=== PATIENT | female | born 1955 | race Caucasian/White ===

== ENCOUNTER 2018-10-07 07:17 | Observation (INO) ==
[2018-10-07] MEDS ORDERED: 0.9 % Sodium Chloride 1,000 ML IVC ONE (07:44)
[2018-10-07] MEDS ORDERED: Ipratropium/Albuterol Neb 3 ML IH ONE (07:44)
--- NOTE | 2018-10-07 07:47 | Emergency Department Note ---
Disposition Clinical Impression: Acute exacerbation of chronic obstructive airways disease Disposition: Admitted As Inpatient Condition: Fair Time of Disposition: 09:22 ([facility]) SOB HPI - General Chief Complaint: ED Shortness of Breath/Dyspnea Stated Complaint: med changes, increasing shortness of breath Time Seen by Provider: 10/07/18 07:37 Source: patient, EMS Mode of arrival: EMS Limitations: no limitations Nursing Notes Reviewed: Yes Vital Signs Reviewed: Yes - History of Present Illness Pt Subjective Complaint: shortness of breath Onset (ago): day(s) Severity: severe Consistency/Duration: constant Improves with: oxygen Worsens with: exertion Known history of: COPD Associated symptoms: Reports: fever, cough, wheezing Treatment prior to arrival: oxygen Cough present: Yes Cough Description: Moist Cough Frequency: Intermittent - Related Data Home Medications Medication Instructions Recorded Confirmed Albuterol Sulfate [Albuterol 2 puff IH BID 04/26/15 10/07/18 Inhaler] Calcium Carbonate/Vitamin D3 600 mg PO BID 04/26/15 10/07/18 [Calcium 600 + Vit D3 Tablet] Donepezil [Aricept] 5 mg PO DAILY 04/26/15 10/07/18 FLUoxetine HCl [PROzac] 60 mg PO DAILY 04/26/15 10/07/18 Folic Acid 800 mcg PO QDPC 04/26/15 10/07/18 Furosemide [Lasix] 40 mg PO DAILY 04/26/15 10/07/18 Lovastatin [Altoprev] 40 mg PO DAILY 04/26/15 10/07/18 Methotrexate [Otrexup] 5 mg PO QWEEK 04/26/15 10/07/18 ARIPiprazole [Abilify] 5 mg PO HS 07/12/16 10/07/18 Aspirin [Lo-Dose Aspirin EC] 81 mg PO DAILY 07/12/16 10/07/18 Amitriptyline [Elavil] 50 mg PO HS 09/24/18 10/07/18 Buprenorphine [Butrans] 1 each TD QWEEK 09/24/18 10/07/18 HYDROcodone/Acet 10/325 mg [[place] 1 tab PO QID 09/24/18 10/07/18 10-325 mg] Mometasone/Formoterol [Dulera 100 1 puff IH BID 09/24/18 10/07/18 Mcg/5 Mcg Inhaler] Oxygen 1 each .ROUTE HS 09/24/18 10/07/18 Allergies Allergy/AdvReac Type Severity Reaction Status Date / Time KHUSHI Inhibitors AdvReac Cough Verified 10/04/18 09:30 All systems ED: reviewed and negative except as stated. Constitutional: Reports: fever, chills ENT ED: Reports: congestion. Denies: ear pain, throat pain Cardiovascular: Denies: chest pain, palpitations Respiratory: Reports: cough, dyspnea, wheezes Gastrointestinal: Denies: abdominal pain, nausea, vomiting Musculoskeletal: Denies: back pain Integumentary: Denies: rash Neurological: Denies: headache Past Medical History - Past Medical History Attestation: Yes The following information was validated with the patient. 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 Absent: scleral icterus, conjunctival injection - ENT ENT exam: normal exam, normal oropharynx, mucous membranes moist, TM's normal bilaterally, normal external ear exam - Neck Neck exam: Present: normal inspection, full ROM - Chest Chest inspection: Present: normal inspection, symmetric chest wall rise. Absent: tenderness - Respiratory Respiratory exam: Present: wheezes (Faint and scattered bilaterally). Absent: respiratory distress, accessory muscle use - Cardiovascular Cardiovascular exam: Present: normal rhythm, tachycardia, normal heart sounds - Abdominal Exam Abdominal exam: Present: soft, Non-Tender, normal bowel sounds - Extremities Exam Extremities exam: Present: normal inspection. Absent: pedal edema - Neurological Exam Neurological exam: Present: alert, oriented X3 - Psychiatric Psychiatric exam: Present: normal affect, normal mood - Skin Skin exam: Present: warm, dry. Absent: rash Course Course Narrative: Patient presents with a moist cough, fevers and chills, shortness of breath. History of underlying COPD. She is febrile and tachycardic here. She was hypoxic on arrival. Oxygen saturation is in the mid 90s with oxygen supplementation. I suspect this is going to be pneumonia and ordered a septic workup and chest x-ray. Duonebs and fluids. At this point it is the end of my shift. I will be turning the case over to the oncoming physician to evaluate test results and reevaluate the patient and make appropriate disposition. - Reevaluation(s) Reevaluation #1: 63-year-old female turned over to my care at 0800 hrs. patient was evaluated patient's having marked dyspnea despite receiving aerosol treatments is having cough and congestion this is thought possibly to be related to medication change s and is evidence that she is having COPD changes though her chest x-ray does not show pneumonia there is still possibility of an underlying pneumonia she has cause little bit of strain on her heart because of the tachycardia there is no ST elevation consistent with an ischemic or injury type pattern this x-ray showed COPD changes but no infiltrate d-dimer is pending she is alert pleasant female in mild dyspnea even after aerosols skin is warm and dry pupils round nares are patent throat is soft supple trachea is midline chest still has diffuse interstitial wheezing noted throughout heart tachycardic regular abdomen soft positive bowel sounds extremities show no pitting edema mentation is clear intact will discuss with patient about being admitted to receive IV steroids and aerosols to see if we can open up and caused a decreased inflammatory response is currently the lung lora anticipated admission Reevaluation #2: PE study was done which is negative shows COPD changes patient transferred to [facility] Vital Signs Temperature 101.8 F H 10/07/18 07:19 Pulse Rate 130 10/07/18 07:19 Respiratory Rate 26 10/07/18 07:19 Blood Pressure 163/80 10/07/18 07:19 O2 Sat by Pulse Oximetry 96 10/07/18 07:19 Temperature 101.8 F H 10/07/18 07:19 Pulse Rate 106 10/07/18 10:02 Respiratory Rate 18 10/07/18 10:02 Blood Pressure 146/64 10/07/18 10:02 O2 Sat by Pulse Oximetry 93 10/07/18 10:02 Oxygen Delivery Oxygen Delivery Nasal Cannula Shortness of Breath/Dyspnea - Medical Records Medical records reviewed: Yes I reviewed the patient's medical records. - Lab Data Result diagrams: 10/07/18 07:59 10/07/18 07:59 Lab Results 10/07/18 10/07/18 10/07/18 Range/Units 07:59 07:59 07:59 WBC 9.1 (4.3-11.1) K/mcL RBC 4.23 (3.82-4.97) M/mcL Hgb 12.7 (11.5-15.4) g/dL Hct 40.2 (35.3-44.9) % MCV 95.0 (83.0-100.0) fL MCH 30.0 (28.0-33.3) pg MCHC 31.6 (31.6-35.5) g/dL RDW 13.1 (11.5-14.5) % Plt Count 205 (140-400) K/mcL MPV 9.5 (9.4-12.4) fL Immature Gran % 0.3 (0-4) % Seg Neutrophils % 87.8 % Lymphocytes % 4.1 % Monocytes % 7.3 % Eosinophils % 0.3 % Basophils % 0.2 % Neutrophils # 8.0 (1.6-8.9) K/mcL Lymphocytes # 0.4 L (0.6-4.6) K/mcL Monocytes # 0.7 (0.0-1.3) K/mcL Eosinophils # 0.0 (0.0-0.6) K/mcL Basophils # 0.0 (0.0-0.2) K/mcL PT (9.4-12.1) Seconds INR APTT (26.0-36.0) Seconds D-Dimer (0-500) ng/mLFEU Sodium 137 (136-145) mEq/L Potassium 4.1 (3.5-5.1) mEq/L Chloride 100 (98-107) mEq/L Carbon Dioxide 30 H (23-29) mEq/L BUN 22 (8-23) mg/dL Creatinine 0.86 (0.60-1.20) mg/dL Est GFR ( Amer) > 60 (> 60) Est GFR (Non-Af Amer) > 60 (> 60) BUN/Creatinine Ratio 26 (6-26) Glucose 93 (70-105) mg/dL Calculated Osmolality 287 (280-300) Lactic Acid 0.9 (0.5-2.2) mmol/L Calcium 9.6 (8.6-10.3) mg/dL Troponin I (< 0.04) ng/mL Urine Color (Yellow) Urine Clarity (Clear) Urine pH (5.0-8.0) pH Units Ur Specific [place] (1.010-1.025) Urine Protein (Neg-Trace) mg/dL Urine Glucose (UA) (Normal) mg/dL Urine Ketones (Negative) mg/dL Urine Blood (Negative) Urine Nitrite (Negative) Urine Bilirubin (Negative) Urine Urobilinogen (Normal) mg/dL Ur Leukocyte Esterase (Negative) Urine Microscopic WBC (0-3) per hpf Ur Squamous Epith Cells (None-Few) per lpf Urine Bacteria (None-Few) per hpf Ur Culture Indicated? (NO) 10/07/18 10/07/18 10/07/18 Range/Units 07:59 07:59 08:00 WBC (4.3-11.1) K/mcL RBC (3.82-4.97) M/mcL Hgb (11.5-15.4) g/dL Hct (35.3-44.9) % MCV (83.0-100.0) fL MCH (28.0-33.3) pg MCHC (31.6-35.5) g/dL RDW (11.5-14.5) % Plt Count (140-400) K/mcL MPV (9.4-12.4) fL Immature Gran % (0-4) % Seg Neutrophils % % Lymphocytes % % Monocytes % % Eosinophils % % Basophils % % Neutrophils # (1.6-8.9) K/mcL Lymphocytes # (0.6-4.6) K/mcL Monocytes # (0.0-1.3) K/mcL Eosinophils # (0.0-0.6) K/mcL Basophils # (0.0-0.2) K/mcL PT 11.2 (9.4-12.1) Seconds INR 1.0 APTT 31.8 (26.0-36.0) Seconds D-Dimer 2187 H (0-500) ng/mLFEU Sodium (136-145) mEq/L Potassium (3.5-5.1) mEq/L Chloride (98-107) mEq/L Carbon Dioxide (23-29) mEq/L BUN (8-23) mg/dL Creatinine (0.60-1.20) mg/dL Est GFR ( Amer) (> 60) Est GFR (Non-Af Amer) (> 60) BUN/Creatinine Ratio (6-26) Glucose (70-105) mg/dL Calculated Osmolality (280-300) Lactic Acid (0.5-2.2) mmol/L Calcium (8.6-10.3) mg/dL Troponin I 0.05 H* (< 0.04) ng/mL Urine Color Yellow (Yellow) Urine Clarity Clear (Clear) Urine pH 7.5 (5.0-8.0) pH Units Ur Specific [place] 1.020 (1.010-1.025) Urine Protein 100 H (Neg-Trace) mg/dL Urine Glucose (UA) Normal (Normal) mg/dL Urine Ketones Negative (Negative) mg/dL Urine Blood Negative (Negative) Urine Nitrite Negative (Negative) Urine Bilirubin Negative (Negative) Urine Urobilinogen Normal (Normal) mg/dL Ur Leukocyte Esterase Trace H (Negative) Urine Microscopic WBC 3-5 H (0-3) per hpf Ur Squamous Epith Cells Few (None-Few) per lpf Urine Bacteria Few (None-Few) per hpf Ur Culture Indicated? YES A (NO) - EKG Data EKG attestation: Yes I reviewed and interpreted this EKG. EKG results narrative: Twelve-lead EKG performed at 7:30 AM. Ordered, reviewed and interpreted by ED physician shows sinus tachycardia at a rate of 117. Normal axis. Good hour progression across precordium. Diffuse T-wave abnormalities that are nonspecific. Intervals within normal limits. Sepsis Event Note - Evaluation Sepsis Screen: Sepsis Risk Current Stage of Suspected Sepsis: ruled out Reason for ruling out sepsis: lactic normal and no endorogan changes and dyspnea caused factors to indicate Possible Source of Sepsis: pulmonary - Focused Exam Date of Encounter: 10/07/18 Time of Encounter: 09:06 Vital Signs: Vital Signs Temp Pulse Resp BP Pulse Ox 10/07/18 08:40 114 22 151/75 97 10/07/18 08:05 16 97 10/07/18 08:01 116 24 159/79 98 10/07/18 07:30 98 10/07/18 07:19 101.8 F H 130 26 163/80 96 Respiratory Exam: Present: wheezes, rhonchi, accessory muscle use Cardiovascular Exam: Present: tachycardia Capillary Refill: < 2 seconds Peripheral Pulse Strength: 3+ normal Peripheral Pulse Location: Radial Skin Exam: normal turgor - Bedside Monitoring Bedside Ultrasound Performed: No Passive Leg raise/fluid bolus: not performed
[2018-10-07 08:08] LABS: Basophils % 0.2 %; Eosinophils % 0.3 %; Hematocrit 40.2 % (35.3-44.9); Hemoglobin 12.7 g/dL (11.5-15.4); Immature Granulocytes % 0.3 % (0-4); Lymphocytes # 0.4 K/mcL (0.6-4.6); Lymphocytes % 4.1 %; Mean Corpuscular HGB Conc 31.6 g/dL (31.6-35.5); Mean Platelet Volume 9.5 fL (9.4-12.4); Monocytes # 0.7 K/mcL (0.0-1.3); Monocytes % 7.3 %; Platelet Count 205 K/mcL (140-400); Red Blood Count 4.23 M/mcL (3.82-4.97); Red Cell Distribution Width 13.1 % (11.5-14.5); Segmented Neutrophils % 87.8 %
[2018-10-07 08:10] LABS: Bilirubin,Urine Negative (Negative); Blood,Urine Negative (Negative); Clarity,Urine Clear (Clear); Color,Urine Yellow (Yellow); Glucose,Urine (UA) Normal (Normal); Ketones,Urine Negative (Negative); Leukocyte Esterase,Urine Trace (Negative); Nitrite,Urine Negative (Negative); PH,Urine 7.5 pH Units (5.0-8.0); Protein,Urine 100 mg/dL (Neg-Trace); Urobilinogen,Urine Normal (Normal)
[2018-10-07 08:30] LABS: Bacteria,Urine Few per hpf (None-Few); Squamous Epithelial Cell,Urine Few per lpf (None-Few)
[2018-10-07 08:36] LABS: BUN/Creatinine Ratio 26 (6-26); Blood Urea Nitrogen 22 mg/dL (8-23); Calcium 9.6 mg/dL (8.6-10.3); Carbon Dioxide 30 mEq/L (23-29); Chloride 100 mEq/L (98-107); Glucose 93 mg/dL (70-105); Osmolality,Calculated 287 (280-300); Potassium 4.1 mEq/L (3.5-5.1); Sodium 137 mEq/L (136-145); eGFR For Non-African Americans > 60 (> 60)
[2018-10-07 09:09] LABS: Prothrombin Time 11.2 Seconds (9.4-12.1)
[2018-10-07 09:12] LABS: Activated Partial Thrombo Time 31.8 Seconds (26.0-36.0)
[2018-10-07] MEDS ORDERED: Ondansetron 4 MG/2 ML VIAL IVP PRN (09:39)
[2018-10-07] MEDS ORDERED: Naloxone 0.4 MG/ML INJ IVP PRN (09:39)
[2018-10-07] MEDS ORDERED: Albuterol 2.5 MG/3 ML NEBULIZER IH PRN (09:39)
[2018-10-07] MEDS ORDERED: 0.9 % Sodium Chloride 1,000 ML IVC SCH (09:39)
[2018-10-07] MEDS ORDERED: Isovue-370 500 ML BOTTLE IVP ONE (10:02)
[2018-10-07] MEDS: Ipratropium/Albuterol Neb 3 ML IH SCH ×2 (11:38→17:25)
[2018-10-07] MEDS: *HR* HYDROcodone/Acet 10/325 mg TABLET PO SCH ×3 (14:35→21:03)
[2018-10-07] MEDS: MethylPREDNISolone 40 MG/ML VIAL IVP SCH ×2 (14:35→18:23)
--- NOTE | 2018-10-07 16:00 | Electrocardiograph Report ---
[address] [place], [place] [address] Test Date: 2018-10-07 Pat Name: Vicki Blanco Department: EDP-12 Room: [facility] Gender: F Nut Sorter: : 1955 Requested By: Margarito Emmanuel Order Number: [id number] Reading MD: Elvia Ayala Measurements Intervals [place] Rate: 117 P: 47 TN: 156 QRS: 49 QRSD: 107 T: 128 QT: 297 QTc: 415 Interpretive Statements Sinus tachycardia Probable left atrial enlargement Abnormal T, consider ischemia, diffuse leads Electronically Signed On 10-07-2018 15:59:30 EDT by Elvia Ayala
--- NOTE | 2018-10-07 17:16 | Internal Med History&Physical ---
Date of Encounter: 10/07/18 Time of Encounter: 16:30 Assessment and Plan (1) Acute exacerbation of chronic obstructive airways disease Current visit: Yes Status: Acute She was given Zithromax in emergency room. Rocephin and lactobacillus will be added. (2) Elevated troponin Current visit: Yes Status: Acute Likely due to demand ischemia. Metoprolol will be added to lower heart rat e/oxygen demand and blood pressure. (3) Depression Current visit: Yes Status: Chronic Continue Prozac, Abilify, and Elavil. Qualifiers: Depression Type: unspecified Qualified Code(s): F32.9 - Major depressive disorder, single episode, unspecified (4) Rheumatoid arthritis Current visit: Yes Status: Chronic Continue methotrexate, folic acid, and [place]. Qualifiers: Rheumatoid arthritis location: multiple sites Rheumatoid factor presence: unspecified presence Qualified Code(s): M06.9 - Rheumatoid arthritis, unspecified Internal Medicine - H&P: HPI Chief complaint: Cough and dyspnea Admitted From: Emergency Dept Plans for Post Hospital Care: Home History of present illness: Ms. Blanco is a 63 year old female who came to emergency room stating she had two-week history of cough and dyspnea. She was given Dulera by her laborer general at time of onset. Despite proper technique including mouth w ashing after use she reports she developed thrush and discontinued use approximately 5 days ago. She reports the cough has been essentially nonproductive. She came to emergency room and was found to have fever 101.8 F. Chest CTA showed no obvious infiltrate or other worrisome pathology. She was admitted to [facility] floor for ongoing care needs. Respiratory history is significant for having smoked from age [age] up to one pack per day. She has a diagnosis COPD and uses oxygen at home as needed. She has history of YANETH and has used CPAP in the past but not recently. Past Med Surg Social Fam HX - Past Medical History Medical history: arthritis, CHF, COPD, hyperlipidemia, osteoporosis Additional medical history: cervical cancer, one kidney, sleep apnea, emphysema Psychiatric history: depression - Past Surgical History Surgical History: appendectomy, hip replacement, hysterectomy Additional surgical history: heart cath, knuckle implants, right femur fracture repair - Social History Smoking Status: Former smoker Smokeless Tobacco Status: No Alcohol use: none Drug use: none Internal Medicine - H&P: Meds Albuterol Sulfate [Albuterol Inhaler] 2 puff IH BID 04/26/15 [History] Calcium Carbonate/Vitamin D3 [Calcium 600 + Vit D3 Tablet] 600 mg PO BID 04/26/15 [History] Donepezil [Aricept] 5 mg PO DAILY 04/26/15 [History] FLUoxetine HCl [PROzac] 60 mg PO DAILY 04/26/15 [History] Folic Acid 800 mcg PO QDPC 04/26/15 [History] Furosemide [Lasix] 40 mg PO DAILY 04/26/15 [History] Lovastatin [Altoprev] 40 mg PO DAILY 04/26/15 [History] Methotrexate [Otrexup] 5 mg PO QWEEK 04/26/15 [History] ARIPiprazole [Abilify] 5 mg PO HS 07/12/16 [History] Aspirin [Lo-Dose Aspirin EC] 81 mg PO DAILY 07/12/16 [History] Amitriptyline [Elavil] 50 mg PO HS 09/24/18 [History] Buprenorphine [Butrans] 1 each TD QWEEK 09/24/18 [History] HYDROcodone/Acet 10/325 mg [[place] 10-325 mg] 1 tab PO QID 09/24/18 [History] Mometasone/Formoterol [Dulera 100 Mcg/5 Mcg Inhaler] 1 puff IH BID 09/24/18 [History] Oxygen 1 each .ROUTE HS 09/24/18 [History] Allergy/AdvReac Type Severity Reaction Status Date / Time KHUSHI Inhibitors AdvReac Cough Verified 10/04/18 09:30 All Systems PM: A 10-system review of systems was performed and is negative for pertinent findings except as documented above in the HPI. Review of systems: Gen.: She states her weight has increased approximately 30 pounds in the past year. She attributes this to the of her last year resulting in unhealthy eating habits. Cardiovascular: She denies hypertension but claims a diagnosis of heart failure. Echocardiogram 02/08/2016 showed LVEF of 55%. There was mild diastolic dysfunction with E/A ratio 0.6. Interventricular septum and posterior wall thickness measurements were 0.90 and 1.04 cm respectively. No significant valvular abnormalities were seen. She reports heart catheter 2000 showed a sing le stenosis but she was told her coronary arteries were too small to be stented. She has not had repeat heart catheter or an EST since then. She does not get angina or anginal equivalents on exertion. She denies DVT or pulmonary embolus. Respiratory: As per history of present illness GI: She denies disorders of her liver gallbladder or exocrine pancreas : She reports kidney stones approximately age 14 without recurrence. She denies other kidney or bladder disorders. Neurologic: She denies large distribution strokes or seizures. She states she has been diagnosed with possible early dementia and was placed on Aricept. Endocrine: She denies diabetes or thyroid disease but has hyperlipidemia Hematology/oncology: She reports she had cervical cancer in situ age 16 and had curative hysterectomy at age 18. She denies other internal malignancies, blood disorders, or anemia Psychiatric: She has depression but denies anxiety other mental health issues [place] skeletal: She has DJD. She has had right MCP joint replacements on her second third fingers twice and bilateral total hip replacements. She has rheumatoid arthritis. She denies gout. - Constitutional Vitals: Temp Pulse Resp BP Pulse Ox 98.8 F 120 16 162/79 96 10/07/18 16:23 10/07/18 16:23 10/07/18 16:23 10/07/18 16:23 10/07/18 16:23 Exam: Gen.: She is a well-developed well-nourished female lying in bed who appears dyspneic at rest HEENT: Head is atraumatic and normocephalic. Eyes: EOMI. There is no scleral icterus. Mouth: Mucosa is moist. Neck: Supple and nontender. There is no thyromegaly or adenopathy noted. Heart: Regular with rate approximately 130/m. No murmurs or gallops are heard. Lungs: No wheezes or crackles are heard. Abdomen: Soft and nontender. No masses or guarding are noted. Extremities: There is no cyanosis edema or clubbing noted. Dorsalis pedis and posterior tibial pulses are trace palpable bilaterally. She has significant rheumatoid arthritis changes of her hands with MCP joint enlargement. She has bony disfigurement of her fingers. Neurologic: Mental status: She is talkative and a good historian. Cranial nerves: Smile is symmetric. Forehead wrinkles bilaterally. Tongue protrudes midline. EOMI. Motor: There is no pronator drift. Cerebellar: Finger to nose is intact bilaterally. Skin: Warm and dry Internal Med - H&P Results - Labs CBC & Chem 7: 10/07/18 07:59 10/07/18 07:59 Labs: Short CBC 10/07/18 Range/Units 07:59 WBC 9.1 (4.3-11.1) K/mcL Hgb 12.7 (11.5-15.4) g/dL Hct 40.2 (35.3-44.9) % Plt Count 205 (140-400) K/mcL Neutrophils # 8.0 (1.6-8.9) K/mcL BMP 10/07/18 07:59 Sodium 137 Potassium 4.1 Chloride 100 Carbon Dioxide 30 H BUN 22 Creatinine 0.86 Glucose 93 Calcium 9.6 Cardiac Enzymes 10/07/18 10/07/18 Range/Units 07:59 12:16 Troponin I 0.05 H* 0.15 H* (< 0.04) ng/mL Urine 10/07/18 Range/Units 08:00 Urine Color Yellow (Yellow) Urine Clarity Clear (Clear) Urine pH 7.5 (5.0-8.0) pH Units Ur Specific [place] 1.020 (1.010-1.025) Urine Protein 100 H (Neg-Trace) mg/dL Urine Glucose (UA) Normal (Normal) mg/dL - Impressions ITS Impressions Chest X-Ray 10/07/18 07:42 IMPRESSION: No acute cardiopulmonary disease is identified. D/ / Baljeet Conde MD / Baljeet Conde MD Interpreting Provider: Baljeet Conde MD Chest CTA 10/07/18 10:02 IMPRESSION: Negative CTA for pulmonary embolus. Mild emphysematous changes with a stable benign 7 mm noncalcified nodule superior segment left lower lobe. This is unchanged x5 years. Left basilar atelectasis with chronic elevation left hemidiaphragm. D/ / 10/07/2018 10:50:48 Ace Maria MD / [facility] Inter[facility] Provider: Ace Maria MD
[2018-10-07] MEDS ORDERED: cefTRIAXone 1,000 MG in Water for inj. (sterile) 20 ML 10 ML IVP SCH (18:00)
[2018-10-07] MEDS: Nystatin SUSP 5 ML UD.LIQ PO SCH ×2 (18:23→21:05)
[2018-10-07] MEDS ORDERED: ARIPiprazole 5 MG TABLET PO SCH (21:00)
[2018-10-07] MEDS: Lactobacillus 1 EACH CAP.SPRINK PO SCH (21:03)
[2018-10-08] MEDS: MethylPREDNISolone 40 MG/ML VIAL IVP SCH ×2 (00:04→06:11)
[2018-10-08 06:45] LABS: Basophils % 0.1 %; Hematocrit 42.2 % (35.3-44.9); Hemoglobin 13.2 g/dL (11.5-15.4); Immature Granulocytes % 0.9 % (0-4); Lymphocytes # 0.5 K/mcL (0.6-4.6); Lymphocytes % 3.6 %; Mean Corpuscular HGB Conc 31.3 g/dL (31.6-35.5); Mean Corpuscular Hemoglobin 29.9 pg (28.0-33.3); Mean Corpuscular Volume 95.5 fL (83.0-100.0); Mean Platelet Volume 10.1 fL (9.4-12.4); Monocytes # 0.2 K/mcL (0.0-1.3); Monocytes % 1.4 %; Neutrophils # 13.4 K/mcL (1.6-8.9); Platelet Count 210 K/mcL (140-400); Red Blood Count 4.42 M/mcL (3.82-4.97); Red Cell Distribution Width 13.3 % (11.5-14.5)
[2018-10-08 07:03] VITALS: BP 131/67
[2018-10-08 07:05] LABS: BUN/Creatinine Ratio 16 (6-26); Blood Urea Nitrogen 14 mg/dL (8-23); Calcium 9.6 mg/dL (8.6-10.3); Carbon Dioxide 31 mEq/L (23-29); Chloride 97 mEq/L (98-107); Glucose 152 mg/dL (70-105); Osmolality,Calculated 279 (280-300); Potassium 4.5 mEq/L (3.5-5.1); Sodium 133 mEq/L (136-145); eGFR For Non-African Americans > 60 (> 60)
[2018-10-08] MEDS: Lactobacillus 1 EACH CAP.SPRINK PO SCH (08:19)
[2018-10-08] MEDS: Nystatin SUSP 5 ML UD.LIQ PO SCH (08:20)
[2018-10-08] MEDS: *HR* HYDROcodone/Acet 10/325 mg TABLET PO SCH (08:20)
[2018-10-08] MEDS ORDERED: FLUoxetine 20 MG CAPSULE PO SCH (09:00)
[2018-10-08] MEDS ORDERED: Azithromycin 250 MG TABLET PO SCH (09:00)
[2018-10-08] MEDS ORDERED: Folic Acid 1 MG TABLET PO SCH (09:00)
[2018-10-08] MEDS ORDERED: Cholecalciferol (D-3) 1,000 UNIT TABLET PO SCH (09:00)
[2018-10-08] MEDS ORDERED: Aspirin Enteric Coated 81 MG Tablet PO SCH (09:00)
[2018-10-08] MEDS ORDERED: Furosemide 40 MG TABLET PO SCH (09:00)
--- NOTE | 2018-10-08 10:07 | Discharge Summary ---
Orders not resulted at time of discharge: Pending orders 10/07/18 07:59 Culture,Blood [BC] Stat 10/07/18 08:00 Culture,Urine [RM] Stat Date of Encounter: 10/08/18 Time of Encounter: 09:50 - Discharge Diagnosis (1) Acute exacerbation of chronic obstructive airways disease Priority: Primary Status: Acute (2) Elevated troponin Priority: Secondary Status: Acute (3) Depression Priority: Secondary Status: Chronic Qualifiers: Depression Type: unspecified Qualified Code(s): F32.9 - Major depressive disorder, single episode, unspecified (4) Rheumatoid arthritis Priority: Secondary Status: Chronic Qualifiers: Rheumatoid arthritis location: multiple sites Rheumatoid factor presence: unspecified presence Qualified Code(s): M06.9 - Rheumatoid arthritis, unspecified Hospital course: Ms. Blanco is a 63 year old female who came to emergency room stating she had two-week history of cough and dyspnea. 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 Despite proper technique including mouth washing after use she reports she developed thrush and discontinued use approximately 5 days ago. She reports the cough has been essentially nonproductive. She came to emergency room and was found to have fever 101.8 F. Chest CTA showed no obvious infiltrate or other worrisome pathology. She was admitted to [facility] floor for ongoing care needs. Initial orders were written by the emergency room physician. I saw her on October 07 and performed a history and physical. She was given IV Zithromax in emergency room. IV steroids were also ordered. I started Rocephin and lactobacillus. When I saw her on October 08 she stated she felt significantly improved and back to her baseline and wished to be discharged home. I offered her staying another day in the hospital but she felt she was stable for discharge. She will continue with antibiotic and probiotic with prednisone for 3 additional days at discharge. Final report on blood cultures and urine culture is pending at time of discharge. Troponin moises to 0.18 on serial testing. I felt this was likely due to demand ischemia. TSH on returned low at 0.161. Her PCP can do further workup. She will follow with her PCP Kenna Mendez CNP within 1 week. - Time Spent with Patient Total time spent providing and/or coordinating discharge services: - Discharge Medications Prescriptions: New Cefuroxime PO [Ceftin] 500 mg PO Q12HR #6 tablet Azithromycin [Zithromax] 250 mg PO DAILY #3 tablet Lactobacillus [Culturelle] 1 each PO BID #6 cap.sprink predniSONE [PredniSONE] 10 mg PO BIDWM #6 tablet Continue Amitriptyline [Elavil] 50 mg PO HS Oxygen 1 each .ROUTE HS Mometasone/Formoterol [Dulera 100 Mcg/5 Mcg Inhaler] 1 puff IH BID HYDROcodone/Acet 10/325 mg [Warriormine 10-325 mg] 1 tab PO QID Buprenorphine [Butrans] 1 each TD QWEEK Albuterol Sulfate [Albuterol Inhaler] 2 puff IH BID Furosemide [Lasix] 40 mg PO DAILY Methotrexate [Otrexup] 5 mg PO QWEEK Lovastatin [Altoprev] 40 mg PO DAILY FLUoxetine HCl [Prozac] 60 mg PO DAILY Folic Acid 800 mcg PO QDPC Donepezil [Aricept] 5 mg PO DAILY Calcium Carbonate/Vitamin D3 [Calcium 600-Vit D3 800 Tablet] 600 mg PO BID ARIPiprazole [Abilify] 5 mg PO HS Aspirin [Lo-Dose Aspirin EC] 81 mg PO DAILY Home Medications: Albuterol Sulfate [Albuterol Inhaler] 2 puff IH BID 04/26/15 [History] Calcium Carbonate/Vitamin D3 [Calcium 600-Vit D3 800 Tablet] 600 mg PO BID 04/26/15 [History] Donepezil [Aricept] 5 mg PO DAILY 04/26/15 [History] FLUoxetine HCl [Prozac] 60 mg PO DAILY 04/26/15 [History] Folic Acid 800 mcg PO QDPC 04/26/15 [History] Furosemide [Lasix] 40 mg PO DAILY 04/26/15 [History] Lovastatin [Altoprev] 40 mg PO DAILY 04/26/15 [History] Methotrexate [Otrexup] 5 mg PO QWEEK 04/26/15 [History] ARIPiprazole [Abilify] 5 mg PO HS 07/12/16 [History] Aspirin [Lo-Dose Aspirin EC] 81 mg PO DAILY 07/12/16 [History] Amitriptyline [Elavil] 50 mg PO HS 09/24/18 [History] Buprenorphine [Butrans] 1 each TD QWEEK 09/24/18 [History] HYDROcodone/Acet 10/325 mg [Warriormine 10-325 mg] 1 tab PO QID 09/24/18 [History] Mometasone/Formoterol [Dulera 100 Mcg/5 Mcg Inhaler] 1 puff IH BID 09/24/18 [History] Oxygen 1 each .ROUTE HS 09/24/18 [History] Azithromycin [Zithromax] 250 mg PO DAILY #3 tablet 10/08/18 [Rx] Cefuroxime PO [Ceftin] 500 mg PO Q12HR #6 tablet 10/08/18 [Rx] Lactobacillus [Culturelle] 1 each PO BID #6 cap.sprink 10/08/18 [Rx] predniSONE [PredniSONE] 10 mg PO BIDWM #6 tablet 10/08/18 [Rx] Allergies/Adverse Reactions: Allergy/AdvReac Type Severity Reaction Status Date / Time KHUSHI Inhibitors AdvReac Cough Verified 10/04/18 09:30 Date of admission: 10/07/18 09:25 Primary care physician: Kenna Mendez Consults: 10/07/18 09:39 Consult to Nurse Navigator [CONS] Routine Comment: - Constitutional Vitals: Temp Pulse Resp BP Pulse Ox 97.7 F 95 16 131/67 97 10/08/18 07:00 10/08/18 07:00 10/08/18 07:00 10/08/18 07:00 10/08/18 07:00 - Patient Status Disposition: Home, Self-Care Condition: Fair - Discharge Instructions Follow Up With: Kenna Mendez [Primary Care Provider] - 1 week - Diet and Activity Activity: resume usual activities as tolerated Diet: advance to your usual diet
[2018-10-09] MEDS ORDERED: *HR* Methotrexate 2.5 MG TABLET PO SCH (09:00)
--- NOTE | 2018-10-10 22:32 | Electrocardiograph Report ---
[place] [id number] Test Date: 2018-10-07 Pat Name: Vicki Blanco Department: EDP-12 Room: [facility] Gender: F Clip [employer] Wrapper: : 1955 Requested By: Jeferson Yadav Order Number: [id number] Reading MD: Joselito Christian Measurements Intervals Advance Rate: 116 P: 33 MS: 148 QRS: 45 QRSD: 108 T: 99 QT: 309 QTc: 430 Interpretive Statements Sinus tachycardia Electronically Signed On 10-10-2018 22:30:58 EDT by Joselito Christian
[2018-10-11] MEDS ORDERED: BUPRENORPHINE TP SCH (09:00)
== END 2018-10-08 11:55 | disposition home or self-care (01) ==
LOC: INPPIK 07:17 → EMEROOPIK 07:17 → INPPIK 11:47
PROVIDERS: ADMIT Internal Medicine; ATTEND Internal Medicine

== ENCOUNTER 2018-10-12 05:22 | Observation (INO) ==
[2018-10-12] MEDS ORDERED: Ipratropium/Albuterol Neb 3 ML ONE (05:38)
--- NOTE | 2018-10-12 07:33 | Emergency Department Note ---
Disposition Clinical Impression: Acute exacerbation of chronic obstructive airways disease Disposition: Admitted As Inpatient Condition: Fair Referrals: Kenna Mendez [Primary Care Provider] - Forms: ED Satisfaction Letter Time of Disposition: 07:39 SOB HPI - General Chief Complaint: ED Shortness of Breath/Dyspnea Stated Complaint: shortness of breath Time Seen by Provider: 10/12/18 05:30 Source: patient, EMS Mode of arrival: EMS Limitations: no limitations Nursing Notes Reviewed: Yes Vital Signs Reviewed: Yes - History of Present Illness Pt Subjective Complaint: shortness of breath Onset (ago): Just 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 Released a few days ago. He did have progressive worsening shortness of breath since leaving the hospital and then this morning she woke up very short of breath. She tried a breathing treatment did not seem to help. She checked her oxygen saturation at home and it was 84%. She does have home oxygen but only uses it as needed.) Severity: severe Consistency/Duration: constant Worsens with: exertion Associated symptoms: Reports: cough, wheezing. Denies: fever Treatment prior to arrival: bronchodilator Cough present: Yes Sputum production: No - Related Data Home Medications Medication Instructions Recorded Confirmed Albuterol Sulfate [Albuterol 2 puff IH BID 04/26/15 10/12/18 Inhaler] Calcium Carbonate/Vitamin D3 600 mg PO BID 04/26/15 10/12/18 [Calcium 600-Vit D3 800 Tablet] Donepezil [Aricept] 5 mg PO DAILY 04/26/15 10/12/18 FLUoxetine HCl [Prozac] 60 mg PO DAILY 04/26/15 10/12/18 Folic Acid 800 mcg PO QDPC 04/26/15 10/12/18 Furosemide [Lasix] 40 mg PO DAILY 04/26/15 10/12/18 Lovastatin [Altoprev] 40 mg PO DAILY 04/26/15 10/12/18 Methotrexate [Otrexup] 5 mg PO QWEEK 04/26/15 10/12/18 ARIPiprazole [Abilify] 5 mg PO HS 07/12/16 10/12/18 Aspirin [Lo-Dose Aspirin EC] 81 mg PO DAILY 07/12/16 10/12/18 Amitriptyline [Elavil] 50 mg PO HS 09/24/18 10/12/18 Buprenorphine [Butrans] 1 each TD QWEEK 09/24/18 10/12/18 HYDROcodone/Acet 10/325 mg [Ramsey 1 tab PO QID 09/24/18 10/12/18 10-325 mg] Mometasone/Formoterol [Dulera 100 1 puff IH BID 09/24/18 10/12/18 Mcg/5 Mcg Inhaler] Oxygen 1 each .ROUTE HS 09/24/18 10/12/18 Previous Rx's Medication Instructions Recorded Azithromycin [Zithromax] 250 mg PO DAILY #3 tablet 10/08/18 Cefuroxime PO [Ceftin] 500 mg PO Q12HR #6 tablet 10/08/18 Lactobacillus [Culturelle] 1 each PO BID #6 cap.sprink 10/08/18 predniSONE [PredniSONE] 10 mg PO BIDWM #6 tablet 10/08/18 Allergies Allergy/AdvReac Type Severity Reaction Status Date / Time KHUSHI Inhibitors AdvReac Cough Verified 10/04/18 09:30 All systems ED: reviewed and negative except as stated. Constitutional: Denies: fever, chills ENT ED: Denies: ear pain, throat pain, congestion Cardiovascular: Denies: chest pain, palpitations Respiratory: Reports: cough, dyspnea, wheezes Gastrointestinal: Denies: abdominal pain, nausea, vomiting Musculoskeletal: Reports: back pain Integumentary: Denies: rash Past Medical History - Past Medical History Attestation: Yes The following information was validated with the patient. 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 Absent: scleral icterus, conjunctival injection - ENT ENT exam: normal exam, normal oropharynx, mucous membranes moist, normal external ear exam - Neck Neck exam: Present: normal inspection, full ROM - Chest Chest inspection: Present: normal inspection, symmetric chest wall rise. Absent: tenderness - Respiratory Respiratory exam: Present: wheezes (Diffuse wheezes throughout). Absent: accessory muscle use - Cardiovascular Cardiovascular exam: Present: normal rhythm, tachycardia, normal heart sounds - Abdominal Exam Abdominal exam: Present: soft, Non-Tender, normal bowel sounds - Extremities Exam Extremities exam: Present: normal inspection. Absent: pedal edema - Neurological Exam Neurological exam: Present: alert, oriented X3 - Psychiatric Psychiatric exam: Present: normal affect, normal mood - Skin Skin exam: Present: warm, dry. Absent: rash Course Course Narrative: I saw the patient immediately on arrival. She went to shortness of breath it actually been worsening since leaving the hospital but was most significant this morning. She is tachypneic and coughing and wheezing. However triple DuoNeb on her and Solu-Medrol. Repeat the chest x-ray. Disposition will be based on diagnostic results and reevaluation. - Reevaluation(s) Reevaluation #1: Patient is better at rest after treatment. However we got her up and walked her and after a short time she got more short of breath and wheezy and her O2 sat dropped to 82%. She is in need to be admitted to the hospital again until better stabilize. I will talk to the hospitalist to arrange admission. Labs look fine. Chest x-ray looks okay. Time: 07:36 - Consultations Consultation #1: Dr. Yadav, hospitalist - I discussed the case with the hospitalist. He accepted the patient for admission. Time: 08:01 Vital Signs Temperature 98.9 F 10/12/18 05:25 Pulse Rate 111 10/12/18 05:25 Respiratory Rate 16 10/12/18 05:25 Blood Pressure 150/82 10/12/18 05:25 O2 Sat by Pulse Oximetry 92 10/12/18 05:25 Temperature 98.9 F 10/12/18 05:25 Pulse Rate 111 10/12/18 05:25 Respiratory Rate 18 10/12/18 05:45 Blood Pressure 150/82 10/12/18 05:25 O2 Sat by Pulse Oximetry 96 10/12/18 05:45 Oxygen Delivery Oxygen Delivery Room Air Shortness of Breath/Dyspnea - Medical Records Medical records reviewed: Yes I reviewed the patient's medical records. - Lab Data Lab results reviewed: Yes I reviewed the patient's lab results. Result diagrams: 10/12/18 05:55 10/12/18 05:55 Lab Results 10/12/18 10/12/18 10/12/18 Range/Units 05:55 05:55 05:55 WBC 4.3 D (4.3-11.1) K/mcL RBC 4.37 (3.82-4.97) M/mcL Hgb 13.0 (11.5-15.4) g/dL Hct 42.3 (35.3-44.9) % MCV 96.8 (83.0-100.0) fL MCH 29.7 (28.0-33.3) pg MCHC 30.7 L (31.6-35.5) g/dL RDW 13.2 (11.5-14.5) % Plt Count 179 (140-400) K/mcL MPV 9.5 (9.4-12.4) fL Immature Gran % 0.5 (0-4) % Seg Neutrophils % 66.8 % Lymphocytes % 22.7 % Monocytes % 9.8 % Eosinophils % 0.0 % Basophils % 0.2 % Neutrophils # 2.9 (1.6-8.9) K/mcL Lymphocytes # 1.0 (0.6-4.6) K/mcL Monocytes # 0.4 (0.0-1.3) K/mcL Eosinophils # 0.0 (0.0-0.6) K/mcL Basophils # 0.0 (0.0-0.2) K/mcL Sodium 135 L (136-145) mEq/L Potassium 3.6 (3.5-5.1) mEq/L Chloride 96 L (98-107) mEq/L Carbon Dioxide 35 H (23-29) mEq/L BUN 13 (8-23) mg/dL Creatinine 0.78 (0.60-1.20) mg/dL Est GFR ( Amer) > 60 (> 60) Est GFR (Non-Af Amer) > 60 (> 60) BUN/Creatinine Ratio 17 (6-26) Glucose 90 (70-105) mg/dL Calculated Osmolality 280 (280-300) Troponin I 0.04 H* (< 0.04) ng/mL B-Natriuretic Peptide 53 (Less than 100) pg/mL - Radiology Data Radiology results reviewed: Yes I reviewed the patient's radiology results.
[2018-10-12 07:40] LABS: Basophils % 0.2 %; Hematocrit 42.3 % (35.3-44.9); Immature Granulocytes % 0.5 % (0-4); Lymphocytes % 22.7 %; Mean Corpuscular HGB Conc 30.7 g/dL (31.6-35.5); Mean Corpuscular Hemoglobin 29.7 pg (28.0-33.3); Mean Corpuscular Volume 96.8 fL (83.0-100.0); Mean Platelet Volume 9.5 fL (9.4-12.4); Monocytes # 0.4 K/mcL (0.0-1.3); Monocytes % 9.8 %; Neutrophils # 2.9 K/mcL (1.6-8.9); Platelet Count 179 K/mcL (140-400); Red Blood Count 4.37 M/mcL (3.82-4.97); Red Cell Distribution Width 13.2 % (11.5-14.5); Segmented Neutrophils % 66.8 %
[2018-10-12 07:41] LABS: Carbon Dioxide 35 mEq/L (23-29); Chloride 96 mEq/L (98-107); Potassium 3.6 mEq/L (3.5-5.1); Sodium 135 mEq/L (136-145)
[2018-10-12 07:42] LABS: BUN/Creatinine Ratio 17 (6-26); Blood Urea Nitrogen 13 mg/dL (8-23); Glucose 90 mg/dL (70-105); Osmolality,Calculated 280 (280-300); eGFR For Non-African Americans > 60 (> 60)
[2018-10-12 07:44] LABS: Troponin I 0.04 ng/mL (< 0.04)
[2018-10-12] MEDS ORDERED: MethylPREDNISolone 40 MG/ML VIAL IVP ONE (10:51)
[2018-10-12] MEDS ORDERED: BUPRENORPHINE 10 MCG/HR TP SCH ×2 (10:51→19:00)
[2018-10-12] MEDS ORDERED: Naloxone 0.4 MG/ML INJ IVP PRN (10:51)
[2018-10-12] MEDS: Ipratropium/Albuterol Neb 3 ML IH SCH ×4 (11:38→23:28)
[2018-10-12] MEDS: 0.9 % Sodium Chloride 1,000 ML IVC SCH ×2 (13:34→23:50)
[2018-10-12] MEDS: Aspirin Enteric Coated 81 MG Tablet PO SCH (13:35)
[2018-10-12] MEDS: Cefuroxime PO 250 MG TABLET PO SCH ×2 (13:35→20:39)
[2018-10-12] MEDS: Azithromycin 250 MG TABLET PO SCH (13:35)
[2018-10-12] MEDS: Folic Acid 1 MG TABLET PO SCH (13:35)
[2018-10-12] MEDS: Furosemide 40 MG TABLET PO SCH (13:36)
[2018-10-12] MEDS: Lactobacillus 1 EACH CAP.SPRINK PO SCH ×2 (13:36→20:38)
[2018-10-12] MEDS: *HR* HYDROcodone/Acet 10/325 mg TABLET PO SCH ×4 (13:37→20:38)
[2018-10-12] MEDS: FLUoxetine 20 MG CAPSULE PO SCH (13:37)
--- NOTE | 2018-10-12 18:14 | Internal Med History&Physical ---
Date of Encounter: 10/12/18 Time of Encounter: 17:30 Assessment and Plan (1) Acute exacerbation of chronic obstructive airways disease Current visit: Yes Status: Acute She was given oral Zithromax and Ceftin in emergency room. Symbicort and duonebs have been ordered. She was given IV Solu-Medrol. WBC is normal with no left shift on differential. Chest x-ray is unremarkable. Antibiotics will not be continued at this time. Repeat labs will be done in a.m. (2) Elevated troponin Current visit: No Status: Acute Troponin has decreased to 0.04. (3) Rheumatoid arthritis Current visit: No Status: Chronic Continue methotrexate. Qualifiers: Rheumatoid arthritis location: multiple sites Rheumatoid factor presence: unspecified presence Qualified Code(s): M06.9 - Rheumatoid arthritis, unspecified (4) Low TSH level Current visit: Yes Status: Acute Recheck TSH in a.m. Internal Medicine - H&P: HPI Chief complaint: Dyspnea Admitted From: Emergency Dept Plans for Post Hospital Care: Home History of present illness: Ms. Blanco is a 63 year old female who came to emergency room stating she had increased dyspnea onset October 10. She reports while ambulating to the bathroom this morning approximately 0300 her saturation decreased to 83%. She came to emergency room and was evaluated and was felt to have exacerbation of COPD. She was admitted to [facility] floor for ongoing care needs. She was discharged from [facility] 10/08/2018 after an overnight stay for exacerbation of COPD. I offered her staying an additional day but she declined and wished to go home. She was given oral antibiotic and probiotic for 3 additional days at discharge. Respiratory history is significant for having smoked from age [age] up to one pack per day. She has a diagnosis of COPD and uses oxygen at home as needed. She reports pulmonary function testing was done approximately 2012 with repeat PFTs scheduled in approximately one week. She has history of YANETH and has used CPAP in the past but not recently. Past Med Surg Social Fam HX - Past Medical History Medical history: arthritis, CHF, COPD, hyperlipidemia, osteoporosis Additional medical history: cervical cancer, one kidney, sleep apnea, emphysema Psychiatric history: depression - Past Surgical History Surgical History: appendectomy, hip replacement, hysterectomy Additional surgical history: heart cath, knuckle implants, right femur fracture repair - Social History Smoking Status: Former smoker Smokeless Tobacco Status: No Alcohol use: none Drug use: none Internal Medicine - H&P: Meds Albuterol Sulfate [Albuterol Inhaler] 2 puff IH BID 04/26/15 [History] Calcium Carbonate/Vitamin D3 [Calcium 600-Vit D3 800 Tablet] 600 mg PO BID 04/26/15 [History] Donepezil [Aricept] 5 mg PO DAILY 04/26/15 [History] FLUoxetine HCl [Prozac] 60 mg PO DAILY 04/26/15 [History] Folic Acid 800 mcg PO QDPC 04/26/15 [History] Furosemide [Lasix] 40 mg PO DAILY 04/26/15 [History] Lovastatin [Altoprev] 40 mg PO DAILY 04/26/15 [History] Methotrexate [Otrexup] 5 mg PO QWEEK 04/26/15 [History] ARIPiprazole [Abilify] 5 mg PO HS 07/12/16 [History] Aspirin [Lo-Dose Aspirin EC] 81 mg PO DAILY 07/12/16 [History] Amitriptyline [Elavil] 50 mg PO HS 09/24/18 [History] Buprenorphine [Butrans] 1 each TD QWEEK 09/24/18 [History] HYDROcodone/Acet 10/325 mg [Ericson 10-325 mg] 1 tab PO QID 09/24/18 [History] Mometasone/Formoterol [Dulera 100 Mcg/5 Mcg Inhaler] 1 puff IH BID 09/24/18 [History] Oxygen 1 each .ROUTE HS 09/24/18 [History] Azithromycin [Zithromax] 250 mg PO DAILY #3 tablet 10/08/18 [Rx] Cefuroxime PO [Ceftin] 500 mg PO Q12HR #6 tablet 10/08/18 [Rx] Lactobacillus [Culturelle] 1 each PO BID #6 cap.sprink 10/08/18 [Rx] predniSONE [PredniSONE] 10 mg PO BIDWM #6 tablet 10/08/18 [Rx] Allergy/AdvReac Type Severity Reaction Status Date / Time KHUSHI Inhibitors AdvReac Cough Verified 10/04/18 09:30 All Systems PM: A 10-system review of systems was performed and is negative for pertinent findings except as documented above in the HPI. Review of systems: Review of systems from her recent [facility] hospitalization earlier this week were reviewed and revised as below. Gen.: She states her weight has increased approximately 30 pounds in the past year. She attributes this to the of her last year resulting in unhealthy eating habits. Cardiovascular: She denies hypertension but claims a diagnosis of heart failure. Echocardiogram 02/08/2016 showed LVEF of 55%. There was mild diastolic dysfunction with E/A ratio 0.6. Interventricular septum and posterior wall thickness measurements were 0.90 and 1.04 cm respectively. No significant valvular abnormalities were seen. She reports heart catheter 2000 showed a single stenosis but she was told her coronary arteries were too small to be stented. She has not had repeat heart catheter or an EST since then. She does not get angina or anginal equivalents on exertion. She denies DVT or pulmonary embolus. Respiratory: As per history of present illness GI: She denies disorders of her liver gallbladder or exocrine pancreas : She reports kidney stones approximately age 14 without recurrence. She reports one of her kidneys is atrophied and nonfunctioning. She denies other kidney or bladder disorders. Neurologic: She denies large distribution strokes or seizures. She states she has been diagnosed with possible early dementia and was placed on Aricept. Endocrine: She denies diabetes or thyroid disease but has hyperlipidemia Hematology/oncology: She reports she had cervical cancer in situ age 16 and had curative hysterectomy at age 18. She denies other internal malignancies, blood disorders, or anemia Psychiatric: She has depression but denies anxiety other mental health issues [place] skeletal: She has DJD. She has had right MCP joint replacements on her second third fingers twice and bilateral total hip replacements. She has rheumatoid arthritis. She denies gout. - Constitutional Vitals: Temp Pulse Resp BP Pulse Ox 98.9 F 111 18 151/76 97 10/12/18 05:25 10/12/18 05:25 10/12/18 16:25 10/12/18 11:05 10/12/18 16:25 Exam: Gen.: She is a well-developed well-nourished female sitting in bed who appears in no acute distress at present time HEENT: Head is atraumatic and normocephalic. Eyes: EOMI. There is no scleral icterus. Mouth: Mucosa is moist. Neck: Supple and nontender. There is no thyromegaly or adenopathy noted. Heart: Regular without murmurs gallops or ectopics Lungs: No wheezes or crackles are heard. Abdomen: Soft and nontender. No masses or guarding are noted. Extremities: She has significant rheumatoid arthritic changes of her hands. There is no cyanosis edema or clubbing noted of her lower legs and feet. Neurologic: Mental status: She is talkative and a good historian. Cranial nerves: Smile is symmetric. Forehead wrinkles bilaterally. Tongue protrudes midline. EOMI. Motor: There is no pronator drift. Cerebellar: Finger to nose is intact bilaterally. Skin: Warm and dry Internal Med - H&P Results - Labs CBC & Chem 7: 10/12/18 05:55 10/12/18 05:55 Labs: Short CBC 10/12/18 Range/Units 05:55 WBC 4.3 D (4.3-11.1) K/mcL Hgb 13.0 (11.5-15.4) g/dL Hct 42.3 (35.3-44.9) % Plt Count 179 (140-400) K/mcL Neutrophils # 2.9 (1.6-8.9) K/mcL BMP 10/12/18 05:55 Sodium 135 L Potassium 3.6 Chloride 96 L Carbon Dioxide 35 H BUN 13 Creatinine 0.78 Glucose 90 Cardiac Enzymes 10/12/18 10/12/18 Range/Units 05:55 11:53 Troponin I 0.04 H* 0.04 H* (< 0.04) ng/mL - Impressions ITS Impressions Chest X-Ray 10/12/18 07:40 IMPRESSION: New bandlike opacity in the right mid lung. Bandlike morphology favors atelectasis rather than pneumonia. Elevated left hemidiaphragm with adjacent left basilar opacity, likely atelectasis. D/ / 10/12/2018 07:57:58 Jayjay Gallagher MD / oral Interpreting Provider: Jayjay Gallagher MD
[2018-10-12] MEDS: predniSONE 10 MG TABLET PO SCH (19:13)
[2018-10-12] MEDS: Nystatin SUSP 5 ML UD.LIQ PO SCH (20:40)
[2018-10-12] MEDS ORDERED: ARIPiprazole 5 MG TABLET PO SCH (21:00)
[2018-10-12] MEDS: Budesonide/Formoterol 80/4.5 MDI IH SCH ×2 (23:29→23:43)
[2018-10-13] MEDS: Ipratropium/Albuterol Neb 3 ML IH SCH ×2 (04:02→07:45)
[2018-10-13 05:47] LABS: Basophils % 0.4 %; Hematocrit 39.4 % (35.3-44.9); Hemoglobin 12.3 g/dL (11.5-15.4); Lymphocytes # 0.3 K/mcL (0.6-4.6); Lymphocytes % 13.5 %; Mean Corpuscular HGB Conc 31.2 g/dL (31.6-35.5); Mean Corpuscular Hemoglobin 29.5 pg (28.0-33.3); Mean Corpuscular Volume 94.5 fL (83.0-100.0); Mean Platelet Volume 9.7 fL (9.4-12.4); Monocytes # 0.2 K/mcL (0.0-1.3); Monocytes % 8.2 %; Neutrophils # 1.9 K/mcL (1.6-8.9); Platelet Count 163 K/mcL (140-400); Red Blood Count 4.17 M/mcL (3.82-4.97); Red Cell Distribution Width 13.1 % (11.5-14.5); Segmented Neutrophils % 77.9 %
[2018-10-13 06:17] LABS: BUN/Creatinine Ratio 18 (6-26); Blood Urea Nitrogen 13 mg/dL (8-23); Calcium 8.8 mg/dL (8.6-10.3); Carbon Dioxide 36 mEq/L (23-29); Chloride 97 mEq/L (98-107); Glucose 143 mg/dL (70-105); Osmolality,Calculated 289 (280-300); Potassium 3.4 mEq/L (3.5-5.1); Sodium 138 mEq/L (136-145); eGFR For Non-African Americans > 60 (> 60)
[2018-10-13 06:26] LABS: Thyroid Stimulating Hormone 0.119 mcIU/mL (0.340-5.600)
[2018-10-13 06:58] VITALS: BP 190/78
[2018-10-13] MEDS: Nystatin SUSP 5 ML UD.LIQ PO SCH (07:59)
[2018-10-13] MEDS: predniSONE 10 MG TABLET PO SCH (08:00)
[2018-10-13] MEDS: Azithromycin 250 MG TABLET PO SCH (08:00)
[2018-10-13] MEDS: Cefuroxime PO 250 MG TABLET PO SCH (08:00)
[2018-10-13] MEDS: FLUoxetine 20 MG CAPSULE PO SCH (08:00)
[2018-10-13] MEDS: Aspirin Enteric Coated 81 MG Tablet PO SCH (08:00)
[2018-10-13] MEDS: Furosemide 40 MG TABLET PO SCH (08:00)
[2018-10-13] MEDS: Folic Acid 1 MG TABLET PO SCH (08:00)
[2018-10-13] MEDS: Lactobacillus 1 EACH CAP.SPRINK PO SCH (08:00)
[2018-10-13] MEDS: *HR* HYDROcodone/Acet 10/325 mg TABLET PO SCH (08:02)
[2018-10-13] MEDS ORDERED: Cholecalciferol (D-3) 1,000 UNIT TABLET PO SCH (09:00)
[2018-10-13] MEDS: Budesonide/Formoterol 80/4.5 MDI IH SCH (10:02)
--- NOTE | 2018-10-13 10:27 | Discharge Summary ---
Date of Encounter: 10/13/18 Time of Encounter: 10:10 - Discharge Diagnosis (1) Acute exacerbation of chronic obstructive airways disease Priority: Primary Status: Acute (2) Elevated troponin Priority: Secondary Status: Acute (3) Rheumatoid arthritis Priority: Secondary Status: Chronic Qualifiers: Rheumatoid arthritis location: multiple sites Rheumatoid factor presence: unspecified presence Qualified Code(s): M06.9 - Rheumatoid arthritis, unspecified (4) Low TSH level Priority: Secondary Status: Acute Hospital course: Ms. Blanco is a 63 year old female who came to emergency room stating she had increased dyspnea onset October 10. She reports while ambulating to the bathroom this morning approximately 0300 her saturation decreased to 83%. She came to emergency room and was evaluated and was felt to have exacerbation of COPD. She was admitted to [facility] for ongoing care needs. Initial orders were written by the emergency room physician. I saw her on October 12 and performed a history and physical. She was started on oral Zithromax and Ceftin in emergency room. Symbicort, DuoNeb and steroids were also given When I saw her on October 13 she felt significantly improved and back to her baseline. She wished to be discharged which I felt was reasonable. She will not continue with antibiotics or steroids at discharge. TSH returned low at 0.119. Her PCP can order further workup as needed. She stated she had discarded Dulera and did not wish to restart it. She was agreeable to start Symbicort. I also started Toprol-XL to assist in blood pressure control. Supplement potassium was ordered for borderline hypokalemia. Her PCP can monitor. She will follow with her PCP Kenna Mendez CNP within 1 week. - Time Spent with Patient Total time spent providing and/or coordinating discharge services: - Discharge Medications Prescriptions: New Potassium Chloride 10 meq PO DAILY #30 tab.er.prt Budesonide/Formoterol 160/4.5 [Symbicort 160/4.5] 2 puff IH BIDR #1 hfa.aer.ad Metoprolol XL (24 HR) Succ [Toprol XL] 25 mg PO DAILY #30 tab.er.24h Continued Amitriptyline [Elavil] 50 mg PO HS Oxygen 1 each .ROUTE HS HYDROcodone/Acet 10/325 mg [Glentana 10-325 mg] 1 tab PO QID Buprenorphine [Butrans] 1 each TD QWEEK Albuterol Sulfate [Albuterol Inhaler] 2 puff IH BID Furosemide [Lasix] 40 mg PO DAILY Methotrexate [Otrexup] 5 mg PO QWEEK Lovastatin [Altoprev] 40 mg PO DAILY FLUoxetine HCl [Prozac] 60 mg PO DAILY Folic Acid 800 mcg PO QDPC Donepezil [Aricept] 5 mg PO DAILY Calcium Carbonate/Vitamin D3 [Calcium 600-Vit D3 800 Tablet] 600 mg PO BID ARIPiprazole [Abilify] 5 mg PO HS Aspirin [Lo-Dose Aspirin EC] 81 mg PO DAILY Discontinued Mometasone/Formoterol [Dulera 100 Mcg/5 Mcg Inhaler] 1 puff IH BID Cefuroxime PO [Ceftin] 500 mg PO Q12HR #6 tablet Azithromycin [Zithromax] 250 mg PO DAILY #3 tablet Lactobacillus [Culturelle] 1 each PO BID #6 cap.sprink predniSONE [PredniSONE] 10 mg PO BIDWM #6 tablet Home Medications: Albuterol Sulfate [Albuterol Inhaler] 2 puff IH BID 04/26/15 [History] Calcium Carbonate/Vitamin D3 [Calcium 600-Vit D3 800 Tablet] 600 mg PO BID 04/26/15 [History] Donepezil [Aricept] 5 mg PO DAILY 04/26/15 [History] FLUoxetine HCl [Prozac] 60 mg PO DAILY 04/26/15 [History] Folic Acid 800 mcg PO QDPC 04/26/15 [History] Furosemide [Lasix] 40 mg PO DAILY 04/26/15 [History] Lovastatin [Altoprev] 40 mg PO DAILY 04/26/15 [History] Methotrexate [Otrexup] 5 mg PO QWEEK 04/26/15 [History] ARIPiprazole [Abilify] 5 mg PO HS 07/12/16 [History] Aspirin [Lo-Dose Aspirin EC] 81 mg PO DAILY 07/12/16 [History] Amitriptyline [Elavil] 50 mg PO HS 09/24/18 [History] Buprenorphine [Butrans] 1 each TD QWEEK 09/24/18 [History] HYDROcodone/Acet 10/325 mg [Glentana 10-325 mg] 1 tab PO QID 09/24/18 [History] Oxygen 1 each .ROUTE HS 09/24/18 [History] Budesonide/Formoterol 160/4.5 [Symbicort 160/4.5] 2 puff IH BIDR #1 hfa.aer.ad 10/13/18 [Rx] Metoprolol XL (24 HR) Succ [Toprol XL] 25 mg PO DAILY #30 tab.er.24h 10/13/18 [Rx] Potassium Chloride 10 meq PO DAILY #30 tab.er.prt 10/13/18 [Rx] Allergies/Adverse Reactions: Allergy/AdvReac Type Severity Reaction Status Date / Time KHUSHI Inhibitors AdvReac Cough Verified 10/04/18 09:30 Date of admission: 10/12/18 10:44 Primary care physician: Kenna Mendez - Constitutional Vitals: Temp Pulse Resp BP Pulse Ox 98.0 F 65 14 190/78 94 10/13/18 06:55 10/13/18 06:55 10/13/18 07:45 10/13/18 06:55 10/13/18 07:45 - Patient Status Disposition: Home, Self-Care Condition: Fair - Discharge Instructions Follow Up With: Kenna Mendez [Primary Care Provider] - 1 week - Diet and Activity Activity: wear oxygen at all times Diet: advance to your usual diet
[2018-10-16] MEDS ORDERED: *HR* Methotrexate 2.5 MG TABLET PO SCH (09:00)
== END 2018-10-13 11:06 | disposition home or self-care (01) ==
LOC: EMEROOPIK 05:22 → INPPIK 05:22
PROVIDERS: ADMIT Internal Medicine; ATTEND Internal Medicine

== ENCOUNTER 2021-08-01 23:35 | Inpatient (IN) ==
[2021-08-01] MEDS ORDERED: Furosemide 40 MG/4 ML VIAL IVP ONE (23:37)
[2021-08-02 00:04] LABS: Basophils # 0.1 K/mcL (0.0-0.2); Basophils % 0.6 %; Eosinophils # 0.2 K/mcL (0.0-0.6); Eosinophils % 1.7 %; Hematocrit 32.9 % (35.3-44.9); Hemoglobin 10.4 g/dL (11.5-15.4); Immature Granulocytes % 0.3 % (0-4); Lymphocytes # 1.8 K/mcL (0.6-4.6); Lymphocytes % 14.8 %; Mean Corpuscular HGB Conc 31.6 g/dL (31.6-35.5); Mean Corpuscular Hemoglobin 31.4 pg (28.0-33.3); Mean Corpuscular Volume 99.4 fL (83.0-100.0); Mean Platelet Volume 10.2 fL (9.4-12.4); Monocytes # 0.3 K/mcL (0.0-1.3); Monocytes % 2.8 %; Neutrophils # 9.7 K/mcL (1.6-8.9); Platelet Count 263 K/mcL (140-400); Red Blood Count 3.31 M/mcL (3.82-4.97); Red Cell Distribution Width 12.6 % (11.5-14.5); Segmented Neutrophils % 79.8 %; White Blood Count 12.1 K/mcL (4.3-11.1)
[2021-08-02 00:12] LABS: INR 1.1; Prothrombin Time 11.9 Seconds (9.4-12.1)
[2021-08-02 00:14] LABS: Activated Partial Thrombo Time 28.5 Seconds (26.0-36.0)
[2021-08-02 00:17] LABS: ABG Base Excess 5 mEq/L (-2 to 3); ABG HCO3 34 mEq/L (21-27); ABG Oxygen Saturation 84 % (95-98); ABG PCO2 79 mmHg (35-45); ABG PH 7.24 pH Units (7.32-7.45); ABG PO2 60 mmHg (85-104); ABG TCO2 36 mEq/L (20-26)
[2021-08-02 00:29] LABS: Albumin/Globulin Ratio 1.4 (1.1-2.2); Bilirubin,Direct 0.1 mg/dL (0.0-0.2); Bilirubin,Indirect 0.4 mg/dL (0.0-1.0); Bilirubin,Total 0.5 mg/dL (0.3-1.0); Calcium 9.2 mg/dL (8.6-10.3); Globulin 2.9 g/dL (2.4-3.5); Potassium 3.9 mEq/L (3.5-5.1); Total Protein 6.9 g/dL (6.4-8.9)
[2021-08-02 00:30] LABS: Troponin I 0.04 ng/mL (< 0.04)
[2021-08-02] MEDS ORDERED: *HR* HYDROcodone/Acet 10/325 mg TABLET PO PRN (00:40)
[2021-08-02] MEDS ORDERED: Albuterol 2.5 MG/3 ML NEBULIZER IH PRN (00:40)
[2021-08-02] MEDS: Ipratropium/Albuterol Neb 3 ML IH SCH ×4 (04:34→21:06)
[2021-08-02] MEDS: carvediloL 25 MG TABLET PO SCH ×2 (07:59→16:52)
[2021-08-02] MEDS ORDERED: Metoprolol XL (24 HR) Succ 25 MG TAB.ER.24H PO SCH (09:00)
[2021-08-02] MEDS ORDERED: DilTIAZem CD (24hr) 120 MG CAP.ER.24H PO SCH (09:00)
[2021-08-02] MEDS: Aspirin Enteric Coated 81 MG Tablet PO SCH (09:23)
[2021-08-02] MEDS ORDERED: methocarbamoL 500 MG TABLET PO PRN (10:01)
[2021-08-02] MEDS ORDERED: NON-FORMULARY MEDICATION 1 EACH EACH (Alendronate Sodium 70 MG Tablet) PO SCH (10:15)
[2021-08-02] MEDS ORDERED: acetaZOLAMIDE 250 MG TABLET PO ONE (10:22)
[2021-08-02] MEDS ORDERED: *HR* Heparin 5,000 UNIT/ML VIAL SQ SCH (10:30)
[2021-08-02] MEDS ORDERED: METHYLPREDNISOLONE 4 MG PO SCH (10:45)
[2021-08-02] MEDS: *HR* HYDROcodone/Acet 10/325 mg TABLET PO SCH ×3 (12:41→21:51)
[2021-08-02] MEDS: acetaZOLAMIDE 250 MG TABLET PO SCH (17:06)
[2021-08-02] MEDS: Budesonide/Formoterol 160/4.5 1 PUFF INH IH SCH (21:08)
[2021-08-02] MEDS: Folic Acid 1 MG TABLET PO SCH (21:30)
[2021-08-03] MEDS ORDERED: *HR* Heparin 5,000 UNIT/ML VIAL SQ SCH (00:01)
[2021-08-03] MEDS: Ipratropium/Albuterol Neb 3 ML IH SCH ×4 (04:19→23:15)
[2021-08-03] MEDS: *HR* Heparin 5,000 UNIT/ML VIAL SQ SCH ×2 (05:56→17:08)
[2021-08-03 06:29] LABS: Eosinophils # 0.1 K/mcL (0.0-0.6); Eosinophils % 2.1 %; Hematocrit 29.4 % (35.3-44.9); Hemoglobin 8.9 g/dL (11.5-15.4); Immature Granulocytes % 0.2 % (0-4); Lymphocytes # 1.2 K/mcL (0.6-4.6); Mean Corpuscular HGB Conc 30.3 g/dL (31.6-35.5); Mean Corpuscular Hemoglobin 31.1 pg (28.0-33.3); Mean Corpuscular Volume 102.8 fL (83.0-100.0); Mean Platelet Volume 10.3 fL (9.4-12.4); Monocytes # 0.3 K/mcL (0.0-1.3); Monocytes % 6.2 %; Neutrophils # 2.6 K/mcL (1.6-8.9); Platelet Count 166 K/mcL (140-400); Red Blood Count 2.86 M/mcL (3.82-4.97); Red Cell Distribution Width 12.9 % (11.5-14.5); Segmented Neutrophils % 62.5 %; White Blood Count 4.2 K/mcL (4.3-11.1)
[2021-08-03 06:50] LABS: Calcium 9.1 mg/dL (8.6-10.3); Magnesium 1.6 mg/dL (1.6-2.6); Potassium 3.5 mEq/L (3.5-5.1)
[2021-08-03] MEDS: DilTIAZem CD (24hr) 120 MG CAP.ER.24H PO SCH (08:34)
[2021-08-03] MEDS: Aspirin Enteric Coated 81 MG Tablet PO SCH ×2 (08:35→08:47)
[2021-08-03] MEDS: FLUoxetine 20 MG CAPSULE PO SCH (08:35)
[2021-08-03] MEDS: carvediloL 25 MG TABLET PO SCH ×2 (08:35→17:07)
[2021-08-03] MEDS: acetaZOLAMIDE 250 MG TABLET PO SCH (08:36)
[2021-08-03] MEDS: *HR* HYDROcodone/Acet 10/325 mg TABLET PO SCH ×4 (08:37→22:18)
[2021-08-03] MEDS ORDERED: Metoprolol XL (24 HR) Succ 25 MG TAB.ER.24H PO SCH (09:00)
[2021-08-03] MEDS ORDERED: acetaZOLAMIDE 250 MG TABLET PO SCH (09:00)
[2021-08-03] MEDS ORDERED: *HR* Methotrexate 2.5 MG TABLET PO SCH (09:00)
[2021-08-03] MEDS: Budesonide/Formoterol 160/4.5 1 PUFF INH IH SCH ×2 (11:51→23:15)
[2021-08-03] MEDS: Folic Acid 1 MG TABLET PO SCH (22:17)
[2021-08-04] MEDS: Ipratropium/Albuterol Neb 3 ML IH SCH ×2 (04:22→09:40)
[2021-08-04] MEDS: *HR* Heparin 5,000 UNIT/ML VIAL SQ SCH ×2 (06:26→18:34)
[2021-08-04 07:42] LABS: Basophils % 0.6 %; Eosinophils # 0.1 K/mcL (0.0-0.6); Eosinophils % 2.5 %; Hematocrit 28.2 % (35.3-44.9); Hemoglobin 8.5 g/dL (11.5-15.4); Immature Granulocytes % 0.4 % (0-4); Lymphocytes % 20.2 %; Mean Corpuscular HGB Conc 30.1 g/dL (31.6-35.5); Mean Corpuscular Hemoglobin 31.6 pg (28.0-33.3); Mean Corpuscular Volume 104.8 fL (83.0-100.0); Mean Platelet Volume 10.7 fL (9.4-12.4); Monocytes # 0.4 K/mcL (0.0-1.3); Monocytes % 7.6 %; Neutrophils # 3.5 K/mcL (1.6-8.9); Platelet Count 153 K/mcL (140-400); Red Blood Count 2.69 M/mcL (3.82-4.97); Segmented Neutrophils % 68.7 %; White Blood Count 5.1 K/mcL (4.3-11.1)
[2021-08-04 07:43] LABS: Calcium 8.8 mg/dL (8.6-10.3); Magnesium 1.8 mg/dL (1.6-2.6); Potassium 4.1 mEq/L (3.5-5.1)
[2021-08-04] MEDS: Aspirin Enteric Coated 81 MG Tablet PO SCH (07:57)
[2021-08-04] MEDS: DilTIAZem CD (24hr) 120 MG CAP.ER.24H PO SCH (07:57)
[2021-08-04] MEDS: *HR* HYDROcodone/Acet 10/325 mg TABLET PO SCH ×4 (07:57→21:01)
[2021-08-04] MEDS: acetaZOLAMIDE 250 MG TABLET PO SCH (07:58)
[2021-08-04] MEDS: carvediloL 25 MG TABLET PO SCH ×2 (07:59→15:54)
[2021-08-04] MEDS: FLUoxetine 20 MG CAPSULE PO SCH (07:59)
[2021-08-04] MEDS ORDERED: Furosemide 20 MG/2 ML VIAL IVP SCH (09:00)
[2021-08-04] MEDS: Budesonide/Formoterol 160/4.5 1 PUFF INH IH SCH ×2 (09:40→21:54)
[2021-08-04] MEDS ORDERED: Ipratropium/Albuterol Neb 3 ML IH ONE (14:36)
[2021-08-04] MEDS ORDERED: Ipratropium/Albuterol Neb 3 ML IH PRN (15:15)
[2021-08-04] MEDS ORDERED: Furosemide 20 MG/2 ML VIAL IVP ONE ×2 (15:42→17:00)
[2021-08-04 15:54] LABS: ABG Base Excess 2 mEq/L (-2 to 3); ABG HCO3 32 mEq/L (21-27); ABG Oxygen Saturation 73 % (95-98); ABG PCO2 77 mmHg (35-45); ABG PH 7.22 pH Units (7.32-7.45); ABG PO2 48 mmHg (85-104); ABG TCO2 34 mEq/L (20-26)
[2021-08-04 18:03] LABS: Adenovirus Not Detected (Not Detect); Bordetella Pertussis Not Detected (Not Detect); Chlamydophila pneumoniae Not Detected (Not Detect); Coronavirus 229E Not Detected (Not Detect); Coronavirus HKU1 Not Detected (Not Detect); Coronavirus NL63 Not Detected (Not Detect); Coronavirus OC43 Not Detected (Not Detect); Human Metapneumovirus Not Detected (Not Detect); Human Rhinovirus/Enterovirus Not Detected (Not Detect); Influenza A Subtype 2009 H1 Not Detected (Not Detect); Influenza B Not Detected (Not Detect); Mycoplasma pneumoniae Not Detected (Not Detect); Parainfluenza Virus 1 Not Detected (Not Detect); Parainfluenza Virus 2 Not Detected (Not Detect); Parainfluenza Virus 3 Not Detected (Not Detect); Parainfluenza Virus 4 Not Detected (Not Detect); Respiratory Syncytial Virus Not Detected (Not Detect); SARS-CoV-2 Not Detected (Not Detect)
[2021-08-04] MEDS: MethylPREDNISolone 40 MG/ML VIAL IVP SCH ×2 (18:34→22:50)
[2021-08-04] MEDS: Folic Acid 1 MG TABLET PO SCH (21:02)
[2021-08-04 21:17] LABS: ABG Base Excess 3 mEq/L (-2 to 3); ABG HCO3 31 mEq/L (21-27); ABG Oxygen Saturation 88 % (95-98); ABG PCO2 67 mmHg (35-45); ABG PH 7.27 pH Units (7.32-7.45); ABG PO2 65 mmHg (85-104); ABG TCO2 33 mEq/L (20-26)
[2021-08-05] MEDS: MethylPREDNISolone 40 MG/ML VIAL IVP SCH (05:19)
[2021-08-05] MEDS: *HR* Heparin 5,000 UNIT/ML VIAL SQ SCH ×2 (05:19→17:25)
[2021-08-05 06:21] LABS: Hematocrit 27.6 % (35.3-44.9); Hemoglobin 8.3 g/dL (11.5-15.4); Immature Granulocytes % 0.8 % (0-4); Lymphocytes # 0.2 K/mcL (0.6-4.6); Lymphocytes % 9.6 %; Mean Corpuscular HGB Conc 30.1 g/dL (31.6-35.5); Mean Corpuscular Hemoglobin 31.2 pg (28.0-33.3); Mean Corpuscular Volume 103.8 fL (83.0-100.0); Mean Platelet Volume 10.6 fL (9.4-12.4); Monocytes % 0.4 %; Neutrophils # 2.1 K/mcL (1.6-8.9); Platelet Count 129 K/mcL (140-400); Red Blood Count 2.66 M/mcL (3.82-4.97); Red Cell Distribution Width 12.9 % (11.5-14.5); Segmented Neutrophils % 89.2 %; White Blood Count 2.4 K/mcL (4.3-11.1)
[2021-08-05 06:45] LABS: Calcium 9.1 mg/dL (8.6-10.3); Potassium 4.1 mEq/L (3.5-5.1)
[2021-08-05] MEDS: Aspirin Enteric Coated 81 MG Tablet PO SCH (08:48)
[2021-08-05] MEDS: *HR* HYDROcodone/Acet 10/325 mg TABLET PO SCH ×3 (08:48→17:24)
[2021-08-05] MEDS: FLUoxetine 20 MG CAPSULE PO SCH (08:48)
[2021-08-05] MEDS: DilTIAZem CD (24hr) 120 MG CAP.ER.24H PO SCH (08:49)
[2021-08-05] MEDS: carvediloL 25 MG TABLET PO SCH ×2 (08:49→17:24)
[2021-08-05] MEDS ORDERED: Furosemide 20 MG/2 ML VIAL IVP SCH (09:00)
[2021-08-05] MEDS ORDERED: BUPRENORPHINE TP SCH ×2 (09:00→15:11)
[2021-08-05] MEDS: Budesonide/Formoterol 160/4.5 1 PUFF INH IH SCH (09:55)
[2021-08-05] MEDS ORDERED: MethylPREDNISolone 40 MG/ML VIAL IVP SCH (14:00)
[2021-08-05 16:42] VITALS: BP 123/63; PULSE 83; RESP 18; TEMP 98.6; O2SAT 96
== END 2021-08-05 16:51 ==
LOC: EMEROOPIK 23:35 → INPPIK 23:35
PROVIDERS: ADMIT Internal Medicine; ATTEND Internal Medicine

== ENCOUNTER 2021-08-05 16:03 | Inpatient (IN) ==
[2021-08-05] MEDS: *HR* Heparin 5,000 UNIT/ML VIAL SQ SCH (17:56)
[2021-08-05] MEDS: *HR* HYDROcodone/Acet 10/325 mg TABLET PO SCH ×2 (17:56→20:37)
[2021-08-05] MEDS: Furosemide 20 MG TABLET PO SCH (18:01)
[2021-08-05] MEDS: carvediloL 25 MG TABLET PO SCH (20:38)
[2021-08-05] MEDS: Folic Acid 1 MG TABLET PO SCH (20:38)
[2021-08-05] MEDS: Budesonide/Formoterol 160/4.5 1 PUFF INH IH SCH (21:23)
[2021-08-06] MEDS: MethylPREDNISolone 40 MG/ML VIAL IVP SCH ×3 (00:30→16:33)
[2021-08-06] MEDS: *HR* Heparin 5,000 UNIT/ML VIAL SQ SCH ×2 (05:55→18:35)
[2021-08-06 07:55] LABS: Hematocrit 27.2 % (35.3-44.9); Hemoglobin 8.3 g/dL (11.5-15.4); Immature Granulocytes % 0.5 % (0-4); Lymphocytes # 0.3 K/mcL (0.6-4.6); Lymphocytes % 4.5 %; Mean Corpuscular HGB Conc 30.5 g/dL (31.6-35.5); Mean Corpuscular Hemoglobin 31.1 pg (28.0-33.3); Mean Corpuscular Volume 101.9 fL (83.0-100.0); Mean Platelet Volume 10.6 fL (9.4-12.4); Monocytes # 0.1 K/mcL (0.0-1.3); Neutrophils # 5.6 K/mcL (1.6-8.9); Platelet Count 156 K/mcL (140-400); Red Blood Count 2.67 M/mcL (3.82-4.97); Red Cell Distribution Width 13.2 % (11.5-14.5); White Blood Count 5.9 K/mcL (4.3-11.1)
[2021-08-06 08:13] LABS: Calcium 9.2 mg/dL (8.6-10.3)
[2021-08-06] MEDS: DilTIAZem CD (24hr) 120 MG CAP.ER.24H PO SCH (08:37)
[2021-08-06] MEDS: Furosemide 20 MG TABLET PO SCH ×2 (08:37→16:32)
[2021-08-06] MEDS: FLUoxetine 20 MG CAPSULE PO SCH (08:37)
[2021-08-06] MEDS: carvediloL 25 MG TABLET PO SCH ×2 (08:38→20:33)
[2021-08-06] MEDS: Aspirin Enteric Coated 81 MG Tablet PO SCH (08:38)
[2021-08-06] MEDS: *HR* HYDROcodone/Acet 10/325 mg TABLET PO SCH ×4 (08:38→20:34)
[2021-08-06] MEDS ORDERED: Furosemide 20 MG TABLET PO SCH (09:00)
[2021-08-06] MEDS: Budesonide/Formoterol 160/4.5 1 PUFF INH IH SCH ×2 (09:43→23:11)
[2021-08-06] MEDS: Nystatin SUSP 5 ML UD.LIQ PO SCH ×4 (10:25→20:35)
[2021-08-06] MEDS: Folic Acid 1 MG TABLET PO SCH (20:33)
[2021-08-07] MEDS: MethylPREDNISolone 40 MG/ML VIAL IVP SCH ×3 (00:01→21:25)
[2021-08-07] MEDS: *HR* Heparin 5,000 UNIT/ML VIAL SQ SCH ×2 (05:44→16:51)
[2021-08-07] MEDS: *HR* HYDROcodone/Acet 10/325 mg TABLET PO SCH ×4 (09:46→21:25)
[2021-08-07] MEDS: FLUoxetine 20 MG CAPSULE PO SCH (09:46)
[2021-08-07] MEDS: Aspirin Enteric Coated 81 MG Tablet PO SCH (09:46)
[2021-08-07] MEDS: Nystatin SUSP 5 ML UD.LIQ PO SCH ×4 (09:46→21:25)
[2021-08-07] MEDS: Furosemide 20 MG TABLET PO SCH ×2 (09:47→16:51)
[2021-08-07] MEDS: DilTIAZem CD (24hr) 120 MG CAP.ER.24H PO SCH (09:47)
[2021-08-07] MEDS: carvediloL 25 MG TABLET PO SCH ×2 (09:47→21:24)
[2021-08-07] MEDS: Budesonide/Formoterol 160/4.5 1 PUFF INH IH SCH ×2 (10:30→22:23)
[2021-08-07] MEDS ORDERED: MethylPREDNISolone 40 MG/ML VIAL IVP SCH (18:00)
[2021-08-07] MEDS: Folic Acid 1 MG TABLET PO SCH (21:24)
[2021-08-07] MEDS: Sennosides/Docusate Sodium TABLET PO SCH (21:24)
[2021-08-08] MEDS: *HR* Heparin 5,000 UNIT/ML VIAL SQ SCH ×2 (05:34→16:35)
[2021-08-08 08:56] LABS: Hematocrit 28.4 % (35.3-44.9); Hemoglobin 8.4 g/dL (11.5-15.4); Mean Corpuscular HGB Conc 29.6 g/dL (31.6-35.5); Mean Corpuscular Hemoglobin 31.3 pg (28.0-33.3); Mean Platelet Volume 10.6 fL (9.4-12.4); Platelet Count 194 K/mcL (140-400); Red Blood Count 2.68 M/mcL (3.82-4.97); Red Cell Distribution Width 13.7 % (11.5-14.5); White Blood Count 4.9 K/mcL (4.3-11.1)
[2021-08-08] MEDS: MethylPREDNISolone 40 MG/ML VIAL IVP SCH ×2 (09:12→21:11)
[2021-08-08] MEDS: DilTIAZem CD (24hr) 120 MG CAP.ER.24H PO SCH (09:13)
[2021-08-08] MEDS: Nystatin SUSP 5 ML UD.LIQ PO SCH ×4 (09:13→21:11)
[2021-08-08] MEDS: Aspirin Enteric Coated 81 MG Tablet PO SCH (09:14)
[2021-08-08] MEDS: *HR* HYDROcodone/Acet 10/325 mg TABLET PO SCH ×4 (09:14→21:12)
[2021-08-08] MEDS: Furosemide 20 MG TABLET PO SCH ×2 (09:14→16:35)
[2021-08-08] MEDS: FLUoxetine 20 MG CAPSULE PO SCH (09:14)
[2021-08-08] MEDS: carvediloL 25 MG TABLET PO SCH ×2 (09:15→21:12)
[2021-08-08] MEDS: Sennosides/Docusate Sodium TABLET PO SCH ×2 (09:15→21:11)
[2021-08-08 09:33] LABS: Calcium 9.1 mg/dL (8.6-10.3); Potassium 4.7 mEq/L (3.5-5.1)
[2021-08-08] MEDS: Budesonide/Formoterol 160/4.5 1 PUFF INH IH SCH ×2 (09:36→21:52)
[2021-08-08] MEDS: Folic Acid 1 MG TABLET PO SCH (21:12)
[2021-08-09] MEDS: *HR* Heparin 5,000 UNIT/ML VIAL SQ SCH ×2 (06:40→17:07)
[2021-08-09] MEDS: Aspirin Enteric Coated 81 MG Tablet PO SCH (08:52)
[2021-08-09] MEDS: carvediloL 25 MG TABLET PO SCH ×2 (08:52→21:03)
[2021-08-09] MEDS: Furosemide 20 MG TABLET PO SCH ×2 (08:52→17:07)
[2021-08-09] MEDS: *HR* HYDROcodone/Acet 10/325 mg TABLET PO SCH ×4 (08:52→21:03)
[2021-08-09] MEDS: Sennosides/Docusate Sodium TABLET PO SCH ×2 (08:53→21:03)
[2021-08-09] MEDS: FLUoxetine 20 MG CAPSULE PO SCH (08:53)
[2021-08-09] MEDS: MethylPREDNISolone 40 MG/ML VIAL IVP SCH ×2 (08:53→21:12)
[2021-08-09] MEDS: DilTIAZem CD (24hr) 120 MG CAP.ER.24H PO SCH (08:53)
[2021-08-09] MEDS: Budesonide/Formoterol 160/4.5 1 PUFF INH IH SCH ×2 (09:13→21:22)
[2021-08-09] MEDS: Nystatin SUSP 5 ML UD.LIQ PO SCH ×4 (09:16→21:03)
[2021-08-09] MEDS: Folic Acid 1 MG TABLET PO SCH (21:03)
[2021-08-10] MEDS: *HR* Heparin 5,000 UNIT/ML VIAL SQ SCH ×2 (06:07→16:09)
[2021-08-10] MEDS: *HR* HYDROcodone/Acet 10/325 mg TABLET PO SCH ×4 (08:25→21:22)
[2021-08-10] MEDS: Nystatin SUSP 5 ML UD.LIQ PO SCH ×4 (08:25→21:24)
[2021-08-10] MEDS: Aspirin Enteric Coated 81 MG Tablet PO SCH (08:25)
[2021-08-10] MEDS: FLUoxetine 20 MG CAPSULE PO SCH (08:26)
[2021-08-10] MEDS: Furosemide 20 MG TABLET PO SCH ×2 (08:26→16:09)
[2021-08-10] MEDS: DilTIAZem CD (24hr) 120 MG CAP.ER.24H PO SCH (08:27)
[2021-08-10] MEDS: MethylPREDNISolone 40 MG/ML VIAL IVP SCH (08:27)
[2021-08-10] MEDS: Sennosides/Docusate Sodium TABLET PO SCH ×2 (08:27→21:22)
[2021-08-10] MEDS: carvediloL 25 MG TABLET PO SCH ×2 (08:27→21:30)
[2021-08-10] MEDS: Budesonide/Formoterol 160/4.5 1 PUFF INH IH SCH ×2 (08:45→21:39)
[2021-08-10] MEDS: *HR* Methotrexate 2.5 MG TABLET PO SCH (08:49)
[2021-08-10] MEDS: Folic Acid 1 MG TABLET PO SCH (21:23)
[2021-08-11] MEDS: *HR* Heparin 5,000 UNIT/ML VIAL SQ SCH ×2 (05:23→16:36)
[2021-08-11 08:33] LABS: Hematocrit 29.2 % (35.3-44.9); Hemoglobin 8.9 g/dL (11.5-15.4); Mean Corpuscular HGB Conc 30.5 g/dL (31.6-35.5); Mean Corpuscular Hemoglobin 31.8 pg (28.0-33.3); Mean Corpuscular Volume 104.3 fL (83.0-100.0); Mean Platelet Volume 9.9 fL (9.4-12.4); Platelet Count 136 K/mcL (140-400); Red Cell Distribution Width 14.1 % (11.5-14.5); White Blood Count 7.8 K/mcL (4.3-11.1)
[2021-08-11 09:21] LABS: Potassium 4.2 mEq/L (3.5-5.1)
[2021-08-11] MEDS: FLUoxetine 20 MG CAPSULE PO SCH ×2 (10:26→10:57)
[2021-08-11] MEDS: Aspirin Enteric Coated 81 MG Tablet PO SCH ×2 (10:26→10:56)
[2021-08-11] MEDS: *HR* HYDROcodone/Acet 10/325 mg TABLET PO SCH ×5 (10:27→20:54)
[2021-08-11] MEDS: DilTIAZem CD (24hr) 120 MG CAP.ER.24H PO SCH ×3 (10:28→16:35)
[2021-08-11] MEDS: carvediloL 25 MG TABLET PO SCH ×3 (10:28→16:36)
[2021-08-11] MEDS: Furosemide 20 MG TABLET PO SCH ×2 (10:28→10:40)
[2021-08-11] MEDS: Sennosides/Docusate Sodium TABLET PO SCH ×3 (10:28→20:54)
[2021-08-11] MEDS: Nystatin SUSP 5 ML UD.LIQ PO SCH ×4 (10:29→20:56)
[2021-08-11] MEDS: Budesonide/Formoterol 160/4.5 1 PUFF INH IH SCH ×2 (10:54→21:10)
[2021-08-11] MEDS: Ipratropium/Albuterol Neb 3 ML IH PRN ×2 (11:04→16:53)
[2021-08-11] MEDS ORDERED: *HR* Labetalol 20 MG/4 ML SYRINGE IVP ONE (12:07)
[2021-08-11 17:32] LABS: ABG PH 7.41 pH Units (7.32-7.45)
[2021-08-11 17:33] LABS: ABG Base Excess 10 mEq/L (-2 to 3); ABG HCO3 36 mEq/L (21-27); ABG Oxygen Saturation 89 % (95-98); ABG PCO2 57 mmHg (35-45); ABG PO2 57 mmHg (85-104); ABG TCO2 38 mEq/L (20-26)
[2021-08-11] MEDS: MethylPREDNISolone 40 MG/ML VIAL IVP SCH (18:54)
[2021-08-11] MEDS: Folic Acid 1 MG TABLET PO SCH (20:54)
[2021-08-12] MEDS: MethylPREDNISolone 40 MG/ML VIAL IVP SCH ×2 (05:30→17:08)
[2021-08-12] MEDS: *HR* Heparin 5,000 UNIT/ML VIAL SQ SCH ×2 (05:32→17:08)
[2021-08-12 07:14] LABS: Potassium 4.1 mEq/L (3.5-5.1)
[2021-08-12] MEDS: *HR* HYDROcodone/Acet 10/325 mg TABLET PO SCH ×4 (08:49→20:51)
[2021-08-12] MEDS: carvediloL 25 MG TABLET PO SCH ×2 (08:49→20:51)
[2021-08-12] MEDS: Aspirin Enteric Coated 81 MG Tablet PO SCH (08:49)
[2021-08-12] MEDS: FLUoxetine 20 MG CAPSULE PO SCH (08:49)
[2021-08-12] MEDS: Nystatin SUSP 5 ML UD.LIQ PO SCH ×4 (08:50→20:51)
[2021-08-12] MEDS: Sennosides/Docusate Sodium TABLET PO SCH ×2 (08:50→20:51)
[2021-08-12] MEDS ORDERED: BUPRENORPHINE TP SCH (09:00)
[2021-08-12] MEDS: Budesonide/Formoterol 160/4.5 1 PUFF INH IH SCH ×2 (10:35→20:02)
[2021-08-12] MEDS: Ipratropium/Albuterol Neb 3 ML IH PRN (20:02)
[2021-08-12] MEDS: Folic Acid 1 MG TABLET PO SCH (20:51)
[2021-08-13] MEDS: MethylPREDNISolone 40 MG/ML VIAL IVP SCH ×2 (05:41→18:44)
[2021-08-13] MEDS: *HR* Heparin 5,000 UNIT/ML VIAL SQ SCH ×3 (05:53→18:03)
[2021-08-13] MEDS: Aspirin Enteric Coated 81 MG Tablet PO SCH (09:23)
[2021-08-13] MEDS: carvediloL 25 MG TABLET PO SCH ×2 (09:23→20:28)
[2021-08-13] MEDS: DilTIAZem CD (24hr) 120 MG CAP.ER.24H PO SCH (09:24)
[2021-08-13] MEDS: FLUoxetine 20 MG CAPSULE PO SCH (09:24)
[2021-08-13] MEDS: Sennosides/Docusate Sodium TABLET PO SCH ×2 (09:24→20:29)
[2021-08-13] MEDS: *HR* HYDROcodone/Acet 10/325 mg TABLET PO SCH (09:27)
[2021-08-13] MEDS: Furosemide 20 MG TABLET PO SCH (09:28)
[2021-08-13] MEDS: Nystatin SUSP 5 ML UD.LIQ PO SCH (09:29)
[2021-08-13] MEDS: Budesonide/Formoterol 160/4.5 1 PUFF INH IH SCH ×2 (09:34→21:02)
[2021-08-13] MEDS: Artificial Tears SOLN 15 ML BOTTLE BOTH EYES PRN ×2 (12:41→16:49)
[2021-08-13 15:20] LABS: BUN/Creatinine Ratio 26 (6-26); Blood Urea Nitrogen 27 mg/dL (8-23); Calcium 8.7 mg/dL (8.6-10.3); Carbon Dioxide 37 mEq/L (23-29); Chloride 100 mEq/L (98-107); Glucose 185 mg/dL (70-105); Osmolality,Calculated 302 (280-300); Potassium 4.8 mEq/L (3.5-5.1); Sodium 141 mEq/L (136-145); eGFR For African Americans > 60 (> 60); eGFR For Non-African Americans 54 (> 60)
[2021-08-13] MEDS: *HR* HYDROcodone/Acet 10/325 mg TABLET PO PRN ×2 (15:28→21:36)
[2021-08-13] MEDS: Folic Acid 1 MG TABLET PO SCH (20:29)
[2021-08-13] MEDS: Ipratropium/Albuterol Neb 3 ML IH PRN (21:02)
[2021-08-14] MEDS: *HR* HYDROcodone/Acet 10/325 mg TABLET PO PRN ×4 (04:43→22:43)
[2021-08-14] MEDS: MethylPREDNISolone 40 MG/ML VIAL IVP SCH (05:14)
[2021-08-14] MEDS: *HR* Heparin 5,000 UNIT/ML VIAL SQ SCH ×2 (05:15→18:09)
[2021-08-14] MEDS: Artificial Tears SOLN 15 ML BOTTLE BOTH EYES PRN ×2 (05:18→14:21)
[2021-08-14] MEDS: Budesonide/Formoterol 160/4.5 1 PUFF INH IH SCH ×2 (07:52→22:01)
[2021-08-14] MEDS: Aspirin Enteric Coated 81 MG Tablet PO SCH (08:21)
[2021-08-14] MEDS: FLUoxetine 20 MG CAPSULE PO SCH (08:22)
[2021-08-14] MEDS: Furosemide 20 MG TABLET PO SCH (08:22)
[2021-08-14] MEDS: DilTIAZem CD (24hr) 120 MG CAP.ER.24H PO SCH (08:22)
[2021-08-14] MEDS: Sennosides/Docusate Sodium TABLET PO SCH ×2 (08:22→20:00)
[2021-08-14] MEDS: carvediloL 25 MG TABLET PO SCH ×2 (08:22→20:00)
[2021-08-14] MEDS ORDERED: predniSONE 20 MG TABLET PO SCH (09:00)
[2021-08-14 09:11] LABS: BUN/Creatinine Ratio 28 (6-26); Blood Urea Nitrogen 29 mg/dL (8-23); Calcium 8.8 mg/dL (8.6-10.3); Carbon Dioxide 37 mEq/L (23-29); Chloride 97 mEq/L (98-107); Glucose 126 mg/dL (70-105); Osmolality,Calculated 289 (280-300); Potassium 4.7 mEq/L (3.5-5.1); Sodium 136 mEq/L (136-145); eGFR For African Americans > 60 (> 60); eGFR For Non-African Americans 52 (> 60)
[2021-08-14] MEDS: Ipratropium/Albuterol Neb 3 ML IH PRN ×2 (12:21→22:05)
[2021-08-14] MEDS: methocarbamoL 500 MG TABLET PO PRN (20:00)
[2021-08-14] MEDS: Folic Acid 1 MG TABLET PO SCH (20:00)
[2021-08-15] MEDS: *HR* Heparin 5,000 UNIT/ML VIAL SQ SCH ×2 (05:19→17:52)
[2021-08-15] MEDS: *HR* HYDROcodone/Acet 10/325 mg TABLET PO PRN ×4 (05:19→23:28)
[2021-08-15] MEDS: DilTIAZem CD (24hr) 120 MG CAP.ER.24H PO SCH (07:59)
[2021-08-15] MEDS: carvediloL 25 MG TABLET PO SCH ×2 (07:59→20:33)
[2021-08-15] MEDS: Furosemide 20 MG TABLET PO SCH (07:59)
[2021-08-15] MEDS: FLUoxetine 20 MG CAPSULE PO SCH (07:59)
[2021-08-15] MEDS: Aspirin Enteric Coated 81 MG Tablet PO SCH (07:59)
[2021-08-15] MEDS: Sennosides/Docusate Sodium TABLET PO SCH ×2 (08:00→20:33)
[2021-08-15] MEDS: Artificial Tears SOLN 15 ML BOTTLE BOTH EYES PRN (08:00)
[2021-08-15] MEDS: predniSONE 20 MG TABLET PO SCH (08:06)
[2021-08-15] MEDS: Ipratropium/Albuterol Neb 3 ML IH PRN ×2 (08:43→17:35)
[2021-08-15] MEDS: Budesonide/Formoterol 160/4.5 1 PUFF INH IH SCH ×2 (08:43→21:45)
[2021-08-15] MEDS: Nystatin POWDER 30 GM BOTTLE TP SCH ×2 (11:10→20:40)
[2021-08-15] MEDS: Nystatin SUSP 5 ML UD.LIQ PO SCH ×3 (12:43→20:33)
[2021-08-15] MEDS: Folic Acid 1 MG TABLET PO SCH (20:33)
[2021-08-15] MEDS: methocarbamoL 500 MG TABLET PO PRN (20:33)
[2021-08-16] MEDS: *HR* HYDROcodone/Acet 10/325 mg TABLET PO PRN ×3 (05:19→20:26)
[2021-08-16] MEDS: *HR* Heparin 5,000 UNIT/ML VIAL SQ SCH ×2 (05:20→17:02)
[2021-08-16] MEDS: Artificial Tears SOLN 15 ML BOTTLE BOTH EYES PRN (05:20)
[2021-08-16 06:47] LABS: Eosinophils # 0.1 K/mcL (0.0-0.6); Eosinophils % 1.3 %; Hematocrit 26.2 % (35.3-44.9); Hemoglobin 7.9 g/dL (11.5-15.4); Immature Granulocytes % 1.3 % (0-4); Lymphocytes # 0.9 K/mcL (0.6-4.6); Lymphocytes % 15.9 %; Mean Corpuscular HGB Conc 30.2 g/dL (31.6-35.5); Mean Corpuscular Hemoglobin 31.2 pg (28.0-33.3); Mean Corpuscular Volume 103.6 fL (83.0-100.0); Monocytes # 0.5 K/mcL (0.0-1.3); Monocytes % 9.9 %; Neutrophils # 3.9 K/mcL (1.6-8.9); Platelet Count 132 K/mcL (140-400); Red Blood Count 2.53 M/mcL (3.82-4.97); Red Cell Distribution Width 15.1 % (11.5-14.5); Segmented Neutrophils % 71.6 %; White Blood Count 5.5 K/mcL (4.3-11.1)
[2021-08-16 07:11] LABS: Calcium 8.4 mg/dL (8.6-10.3); Potassium 3.9 mEq/L (3.5-5.1)
[2021-08-16] MEDS: carvediloL 25 MG TABLET PO SCH ×2 (08:00→20:21)
[2021-08-16] MEDS: DilTIAZem CD (24hr) 120 MG CAP.ER.24H PO SCH (08:00)
[2021-08-16] MEDS: Aspirin Enteric Coated 81 MG Tablet PO SCH (08:00)
[2021-08-16] MEDS: Sennosides/Docusate Sodium TABLET PO SCH ×2 (08:01→20:21)
[2021-08-16] MEDS: Nystatin SUSP 5 ML UD.LIQ PO SCH ×4 (08:02→20:21)
[2021-08-16] MEDS: predniSONE 20 MG TABLET PO SCH (08:10)
[2021-08-16] MEDS: FLUoxetine 20 MG CAPSULE PO SCH (08:10)
[2021-08-16] MEDS: Furosemide 20 MG TABLET PO SCH (08:10)
[2021-08-16] MEDS: Nystatin POWDER 30 GM BOTTLE TP SCH ×2 (08:11→20:21)
[2021-08-16] MEDS: Budesonide/Formoterol 160/4.5 1 PUFF INH IH SCH ×2 (09:03→20:57)
[2021-08-16] MEDS: Folic Acid 1 MG TABLET PO SCH (20:21)
[2021-08-16] MEDS: methocarbamoL 500 MG TABLET PO PRN (23:53)
[2021-08-17] MEDS: *HR* Heparin 5,000 UNIT/ML VIAL SQ SCH ×2 (05:48→17:25)
[2021-08-17] MEDS: *HR* HYDROcodone/Acet 10/325 mg TABLET PO PRN ×3 (05:59→18:22)
[2021-08-17] MEDS: carvediloL 25 MG TABLET PO SCH ×2 (08:33→20:37)
[2021-08-17] MEDS: DilTIAZem CD (24hr) 120 MG CAP.ER.24H PO SCH (08:33)
[2021-08-17] MEDS: Aspirin Enteric Coated 81 MG Tablet PO SCH (08:33)
[2021-08-17] MEDS: Sennosides/Docusate Sodium TABLET PO SCH ×2 (08:36→20:37)
[2021-08-17] MEDS: Nystatin POWDER 30 GM BOTTLE TP SCH ×2 (08:36→20:38)
[2021-08-17] MEDS: Furosemide 20 MG TABLET PO SCH (09:06)
[2021-08-17] MEDS: predniSONE 20 MG TABLET PO SCH (09:06)
[2021-08-17] MEDS: FLUoxetine 20 MG CAPSULE PO SCH (09:06)
[2021-08-17] MEDS: *HR* Methotrexate 2.5 MG TABLET PO SCH (09:07)
[2021-08-17] MEDS: Nystatin SUSP 5 ML UD.LIQ PO SCH ×4 (09:08→20:38)
[2021-08-17] MEDS: Budesonide/Formoterol 160/4.5 1 PUFF INH IH SCH ×2 (09:24→21:24)
[2021-08-17] MEDS: Folic Acid 1 MG TABLET PO SCH (20:37)
[2021-08-18] MEDS: *HR* HYDROcodone/Acet 10/325 mg TABLET PO PRN ×2 (00:51→06:47)
[2021-08-18] MEDS: *HR* Heparin 5,000 UNIT/ML VIAL SQ SCH (05:49)
[2021-08-18] MEDS: Ipratropium/Albuterol Neb 3 ML IH PRN (08:09)
[2021-08-18] MEDS: Budesonide/Formoterol 160/4.5 1 PUFF INH IH SCH (08:10)
[2021-08-18 08:12] VITALS: RESP 18
[2021-08-18] MEDS: Sennosides/Docusate Sodium TABLET PO SCH (08:24)
[2021-08-18] MEDS: FLUoxetine 20 MG CAPSULE PO SCH (08:24)
[2021-08-18] MEDS: Aspirin Enteric Coated 81 MG Tablet PO SCH (08:24)
[2021-08-18] MEDS: DilTIAZem CD (24hr) 120 MG CAP.ER.24H PO SCH (08:24)
[2021-08-18] MEDS: Furosemide 20 MG TABLET PO SCH (08:25)
[2021-08-18] MEDS: Nystatin SUSP 5 ML UD.LIQ PO SCH (08:25)
[2021-08-18] MEDS: Nystatin POWDER 30 GM BOTTLE TP SCH (08:25)
[2021-08-18] MEDS: carvediloL 25 MG TABLET PO SCH (08:25)
[2021-08-18 09:44] VITALS: BP 150/78; PULSE 78; TEMP 97.3; O2SAT 90
== END 2021-08-18 12:10 | disposition home or self-care (01) | DRG 189 ==
LOC: INPPIK 17:33
PROVIDERS: ADMIT Family Medicine; ATTEND Family Medicine

== ENCOUNTER 2021-08-18 19:00 | Observation (INO) ==
[2021-08-18 19:54] LABS: Eosinophils % 0.4 %; Hematocrit 26.9 % (35.3-44.9); Immature Granulocytes % 0.8 % (0-4); Lymphocytes # 0.4 K/mcL (0.6-4.6); Lymphocytes % 5.9 %; Mean Corpuscular HGB Conc 29.7 g/dL (31.6-35.5); Mean Corpuscular Volume 104.3 fL (83.0-100.0); Mean Platelet Volume 9.6 fL (9.4-12.4); Monocytes # 0.4 K/mcL (0.0-1.3); Monocytes % 5.6 %; Neutrophils # 6.5 K/mcL (1.6-8.9); Platelet Count 173 K/mcL (140-400); Red Blood Count 2.58 M/mcL (3.82-4.97); Red Cell Distribution Width 15.9 % (11.5-14.5); Segmented Neutrophils % 87.3 %; White Blood Count 7.5 K/mcL (4.3-11.1)
[2021-08-18 20:15] LABS: Calcium 8.8 mg/dL (8.6-10.3); Potassium 4.5 mEq/L (3.5-5.1)
[2021-08-18 20:19] LABS: Troponin I 0.04 ng/mL (< 0.04)
[2021-08-18] MEDS ORDERED: Naloxone 0.4 MG/ML INJ IVP PRN (21:10)
[2021-08-18] MEDS ORDERED: methocarbamoL 500 MG TABLET PO PRN (21:13)
[2021-08-18] MEDS ORDERED: 0.9 % Sodium Chloride 1,000 ML IVC SCH (21:15)
[2021-08-18] MEDS ORDERED: NON-FORMULARY MEDICATION 1 EACH EACH (Alendronate Sodium 70 MG Tablet) PO SCH (21:15)
[2021-08-18] MEDS: Budesonide/Formoterol 160/4.5 1 PUFF INH IH SCH (22:19)
[2021-08-18] MEDS: hydrALAZINE 10 MG TABLET PO SCH (23:53)
[2021-08-18] MEDS: Folic Acid 1 MG TABLET PO SCH (23:54)
[2021-08-19] MEDS: Ipratropium/Albuterol Neb 3 ML IH SCH ×3 (00:32→08:20)
[2021-08-19] MEDS: hydrALAZINE 10 MG TABLET PO SCH ×4 (05:24→23:28)
[2021-08-19] MEDS: Budesonide/Formoterol 160/4.5 1 PUFF INH IH SCH ×2 (08:21→22:21)
[2021-08-19] MEDS: Sennosides/Docusate Sodium TABLET PO SCH ×2 (08:31→20:00)
[2021-08-19] MEDS: Aspirin Enteric Coated 81 MG Tablet PO SCH (08:31)
[2021-08-19] MEDS: DilTIAZem CD (24hr) 120 MG CAP.ER.24H PO SCH (08:31)
[2021-08-19] MEDS: FLUoxetine 20 MG CAPSULE PO SCH (08:32)
[2021-08-19] MEDS: carvediloL 25 MG TABLET PO SCH ×2 (08:32→16:48)
[2021-08-19] MEDS: *HR* HYDROcodone/Acet 10/325 mg TABLET PO SCH ×4 (08:32→20:01)
[2021-08-19] MEDS ORDERED: Tiotropium 10 INH DOSE IH SCH (09:00)
[2021-08-19] MEDS: Furosemide 20 MG TABLET PO SCH (11:04)
[2021-08-19] MEDS: Ipratropium/Albuterol Neb 3 ML IH PRN (15:39)
[2021-08-19] MEDS: *HR* Heparin 5,000 UNIT/ML VIAL SQ SCH (17:32)
[2021-08-19] MEDS: Folic Acid 1 MG TABLET PO SCH (20:00)
[2021-08-20] MEDS: hydrALAZINE 10 MG TABLET PO SCH ×3 (06:02→17:21)
[2021-08-20] MEDS: *HR* Heparin 5,000 UNIT/ML VIAL SQ SCH ×2 (06:02→17:21)
[2021-08-20 07:27] LABS: Eosinophils # 0.1 K/mcL (0.0-0.6); Hematocrit 26.3 % (35.3-44.9); Hemoglobin 7.9 g/dL (11.5-15.4); Immature Granulocytes % 0.6 % (0-4); Lymphocytes # 0.6 K/mcL (0.6-4.6); Lymphocytes % 12.1 %; Mean Corpuscular Hemoglobin 31.2 pg (28.0-33.3); Monocytes # 0.2 K/mcL (0.0-1.3); Monocytes % 4.8 %; Platelet Count 159 K/mcL (140-400); Red Blood Count 2.53 M/mcL (3.82-4.97); Red Cell Distribution Width 15.7 % (11.5-14.5); Segmented Neutrophils % 81.5 %
[2021-08-20 07:44] LABS: Calcium 8.8 mg/dL (8.6-10.3); Magnesium 1.8 mg/dL (1.6-2.6)
[2021-08-20] MEDS: *HR* HYDROcodone/Acet 10/325 mg TABLET PO SCH ×4 (08:04→21:29)
[2021-08-20] MEDS: Aspirin Enteric Coated 81 MG Tablet PO SCH (08:04)
[2021-08-20] MEDS: DilTIAZem CD (24hr) 120 MG CAP.ER.24H PO SCH (08:04)
[2021-08-20] MEDS: Sennosides/Docusate Sodium TABLET PO SCH ×2 (08:05→20:07)
[2021-08-20] MEDS: carvediloL 25 MG TABLET PO SCH ×2 (08:05→17:20)
[2021-08-20] MEDS: FLUoxetine 20 MG CAPSULE PO SCH (08:06)
[2021-08-20] MEDS: Furosemide 20 MG TABLET PO SCH (08:06)
[2021-08-20] MEDS: Ipratropium/Albuterol Neb 3 ML IH PRN (08:26)
[2021-08-20] MEDS: Budesonide/Formoterol 160/4.5 1 PUFF INH IH SCH ×2 (08:27→22:01)
[2021-08-20] MEDS: Folic Acid 1 MG TABLET PO SCH (20:07)
[2021-08-21] MEDS: Ipratropium/Albuterol Neb 3 ML IH PRN ×2 (00:57→14:25)
[2021-08-21] MEDS: hydrALAZINE 10 MG TABLET PO SCH ×4 (01:04→17:38)
[2021-08-21] MEDS ORDERED: Magic Mouthwash 10 ML UD Cup PO PRN (03:06)
[2021-08-21] MEDS: *HR* Heparin 5,000 UNIT/ML VIAL SQ SCH ×2 (05:08→17:37)
[2021-08-21] MEDS: FLUoxetine 20 MG CAPSULE PO SCH (08:44)
[2021-08-21] MEDS: DilTIAZem CD (24hr) 120 MG CAP.ER.24H PO SCH (08:45)
[2021-08-21] MEDS: Aspirin Enteric Coated 81 MG Tablet PO SCH (08:45)
[2021-08-21] MEDS: Sennosides/Docusate Sodium TABLET PO SCH ×2 (08:45→19:45)
[2021-08-21] MEDS: Furosemide 20 MG TABLET PO SCH (08:45)
[2021-08-21] MEDS: carvediloL 25 MG TABLET PO SCH ×2 (08:45→16:06)
[2021-08-21] MEDS: Nystatin SUSP 5 ML UD.LIQ PO SCH ×4 (08:46→19:45)
[2021-08-21] MEDS: Budesonide/Formoterol 160/4.5 1 PUFF INH IH SCH ×2 (10:39→22:08)
[2021-08-21] MEDS: *HR* HYDROcodone/Acet 10/325 mg TABLET PO PRN (14:51)
[2021-08-21] MEDS: Folic Acid 1 MG TABLET PO SCH (19:45)
[2021-08-21] MEDS ORDERED: BUPRENORPHINE TP SCH (21:23)
[2021-08-22] MEDS: hydrALAZINE 10 MG TABLET PO SCH ×4 (01:06→17:04)
[2021-08-22] MEDS: *HR* Heparin 5,000 UNIT/ML VIAL SQ SCH ×2 (06:20→17:06)
[2021-08-22] MEDS: Furosemide 20 MG TABLET PO SCH (08:31)
[2021-08-22] MEDS: Nystatin SUSP 5 ML UD.LIQ PO SCH ×4 (08:31→19:29)
[2021-08-22] MEDS: DilTIAZem CD (24hr) 120 MG CAP.ER.24H PO SCH (08:31)
[2021-08-22] MEDS: carvediloL 25 MG TABLET PO SCH ×2 (08:31→17:07)
[2021-08-22] MEDS: Aspirin Enteric Coated 81 MG Tablet PO SCH (08:31)
[2021-08-22] MEDS: FLUoxetine 20 MG CAPSULE PO SCH (08:32)
[2021-08-22] MEDS: Sennosides/Docusate Sodium TABLET PO SCH ×2 (08:32→19:30)
[2021-08-22] MEDS: *HR* HYDROcodone/Acet 10/325 mg TABLET PO PRN (08:44)
[2021-08-22] MEDS: Ipratropium/Albuterol Neb 3 ML IH PRN ×2 (09:02→14:40)
[2021-08-22] MEDS: Budesonide/Formoterol 160/4.5 1 PUFF INH IH SCH ×2 (09:02→21:22)
[2021-08-22] MEDS ORDERED: Nystatin Cream 15 GM TUBE TP PRN (17:40)
[2021-08-22] MEDS: Folic Acid 1 MG TABLET PO SCH (19:30)
[2021-08-23] MEDS: hydrALAZINE 10 MG TABLET PO SCH ×6 (00:27→23:43)
[2021-08-23] MEDS: *HR* HYDROcodone/Acet 10/325 mg TABLET PO PRN ×3 (02:17→21:02)
[2021-08-23] MEDS: Ipratropium/Albuterol Neb 3 ML IH PRN ×4 (03:29→20:32)
[2021-08-23] MEDS: *HR* Heparin 5,000 UNIT/ML VIAL SQ SCH ×2 (05:48→16:28)
[2021-08-23 07:14] LABS: Basophils % 0.2 %; Eosinophils # 0.1 K/mcL (0.0-0.6); Eosinophils % 1.5 %; Hematocrit 25.3 % (35.3-44.9); Hemoglobin 7.4 g/dL (11.5-15.4); Immature Granulocytes % 0.6 % (0-4); Lymphocytes # 0.7 K/mcL (0.6-4.6); Lymphocytes % 15.8 %; Mean Corpuscular HGB Conc 29.2 g/dL (31.6-35.5); Mean Corpuscular Hemoglobin 30.7 pg (28.0-33.3); Mean Platelet Volume 10.2 fL (9.4-12.4); Monocytes # 0.5 K/mcL (0.0-1.3); Neutrophils # 3.3 K/mcL (1.6-8.9); Platelet Count 187 K/mcL (140-400); Red Blood Count 2.41 M/mcL (3.82-4.97); Red Cell Distribution Width 16.1 % (11.5-14.5); Segmented Neutrophils % 70.9 %; White Blood Count 4.6 K/mcL (4.3-11.1)
[2021-08-23 07:20] LABS: Calcium 8.9 mg/dL (8.6-10.3); Potassium 4.3 mEq/L (3.5-5.1)
[2021-08-23] MEDS: Budesonide/Formoterol 160/4.5 1 PUFF INH IH SCH ×2 (08:40→20:43)
[2021-08-23] MEDS: Nystatin SUSP 5 ML UD.LIQ PO SCH ×4 (09:26→20:56)
[2021-08-23] MEDS: FLUoxetine 20 MG CAPSULE PO SCH (09:26)
[2021-08-23] MEDS: Aspirin Enteric Coated 81 MG Tablet PO SCH (09:26)
[2021-08-23] MEDS: DilTIAZem CD (24hr) 120 MG CAP.ER.24H PO SCH (09:26)
[2021-08-23] MEDS: carvediloL 25 MG TABLET PO SCH ×2 (09:27→16:28)
[2021-08-23] MEDS: Furosemide 20 MG TABLET PO SCH (09:27)
[2021-08-23] MEDS: Sennosides/Docusate Sodium TABLET PO SCH ×2 (09:27→20:56)
[2021-08-23] MEDS ORDERED: hydrALAZINE 10 MG TABLET PO SCH (12:50)
[2021-08-23] MEDS: Folic Acid 1 MG TABLET PO SCH (20:56)
[2021-08-24 03:28] VITALS: TEMP 97.3
[2021-08-24] MEDS: Ipratropium/Albuterol Neb 3 ML IH PRN ×2 (04:36→10:23)
[2021-08-24] MEDS: *HR* Heparin 5,000 UNIT/ML VIAL SQ SCH (05:15)
[2021-08-24] MEDS: hydrALAZINE 10 MG TABLET PO SCH ×2 (05:15→11:46)
[2021-08-24] MEDS: FLUoxetine 20 MG CAPSULE PO SCH (08:29)
[2021-08-24] MEDS: Aspirin Enteric Coated 81 MG Tablet PO SCH (08:29)
[2021-08-24] MEDS: Nystatin SUSP 5 ML UD.LIQ PO SCH ×3 (08:29→16:37)
[2021-08-24] MEDS: DilTIAZem CD (24hr) 120 MG CAP.ER.24H PO SCH (08:30)
[2021-08-24] MEDS: carvediloL 25 MG TABLET PO SCH ×2 (08:30→16:37)
[2021-08-24] MEDS: Sennosides/Docusate Sodium TABLET PO SCH (08:30)
[2021-08-24] MEDS ORDERED: *HR* Methotrexate 2.5 MG TABLET PO SCH (09:00)
[2021-08-24] MEDS: Budesonide/Formoterol 160/4.5 1 PUFF INH IH SCH (10:22)
[2021-08-24 10:25] LABS: Basophils % 0.2 %; Eosinophils # 0.1 K/mcL (0.0-0.6); Eosinophils % 1.1 %; Hematocrit 27.2 % (35.3-44.9); Immature Granulocytes % 1.1 % (0-4); Lymphocytes # 0.6 K/mcL (0.6-4.6); Lymphocytes % 10.2 %; Mean Corpuscular HGB Conc 29.4 g/dL (31.6-35.5); Mean Corpuscular Volume 105.4 fL (83.0-100.0); Mean Platelet Volume 9.2 fL (9.4-12.4); Monocytes # 0.6 K/mcL (0.0-1.3); Monocytes % 9.4 %; Neutrophils # 4.9 K/mcL (1.6-8.9); Platelet Count 212 K/mcL (140-400); Red Blood Count 2.58 M/mcL (3.82-4.97); Red Cell Distribution Width 16.2 % (11.5-14.5); White Blood Count 6.3 K/mcL (4.3-11.1)
[2021-08-24 10:37] VITALS: RESP 20; O2SAT 96
[2021-08-24 10:44] LABS: Potassium 3.9 mEq/L (3.5-5.1)
[2021-08-24] MEDS ORDERED: MethylPREDNISolone 40 MG/ML VIAL IVP SCH ×2 (11:00→18:00)
[2021-08-24 16:38] VITALS: BP 147/71; PULSE 76
== END 2021-08-24 16:43 ==
LOC: EMEROOPIK 19:00 → INPPIK 19:00
PROVIDERS: ADMIT Family Medicine; ATTEND Internal Medicine

== ENCOUNTER 2021-08-24 12:23 | Inpatient (IN) ==
[2021-08-24] MEDS ORDERED: methocarbamoL 500 MG TABLET PO PRN (16:45)
[2021-08-24] MEDS ORDERED: Ondansetron ODT 4 MG TAB.RAPDIS SL PRN (16:55)
[2021-08-24] MEDS: Ipratropium/Albuterol Neb 3 ML IH PRN (17:56)
[2021-08-24] MEDS: hydrALAZINE 10 MG TABLET PO SCH ×2 (18:19→23:13)
[2021-08-24] MEDS: *HR* Heparin 5,000 UNIT/ML VIAL SQ SCH (18:19)
[2021-08-24] MEDS: MethylPREDNISolone 40 MG/ML VIAL IVP SCH (18:19)
[2021-08-24] MEDS: Sennosides/Docusate Sodium TABLET PO SCH (21:06)
[2021-08-24] MEDS: Folic Acid 1 MG TABLET PO SCH (21:06)
[2021-08-24] MEDS: *HR* HYDROcodone/Acet 10/325 mg TABLET PO PRN (21:13)
[2021-08-24] MEDS: Nystatin POWDER 30 GM BOTTLE TP SCH (21:13)
[2021-08-24] MEDS: Budesonide/Formoterol 160/4.5 1 PUFF INH IH SCH (21:24)
[2021-08-25] MEDS: Ipratropium/Albuterol Neb 3 ML IH PRN ×3 (03:55→21:11)
[2021-08-25] MEDS: *HR* Heparin 5,000 UNIT/ML VIAL SQ SCH ×2 (05:17→17:29)
[2021-08-25] MEDS: MethylPREDNISolone 40 MG/ML VIAL IVP SCH ×2 (05:17→17:29)
[2021-08-25] MEDS: hydrALAZINE 10 MG TABLET PO SCH ×4 (05:17→23:11)
[2021-08-25] MEDS: *HR* HYDROcodone/Acet 10/325 mg TABLET PO PRN ×3 (06:01→23:11)
[2021-08-25 06:30] LABS: Hemoglobin 7.7 g/dL (11.5-15.4); Immature Granulocytes % 1.2 % (0-4); Lymphocytes # 0.2 K/mcL (0.6-4.6); Lymphocytes % 4.4 %; Mean Corpuscular HGB Conc 29.6 g/dL (31.6-35.5); Mean Corpuscular Hemoglobin 31.2 pg (28.0-33.3); Mean Corpuscular Volume 105.3 fL (83.0-100.0); Mean Platelet Volume 9.6 fL (9.4-12.4); Monocytes # 0.2 K/mcL (0.0-1.3); Monocytes % 3.7 %; Neutrophils # 3.9 K/mcL (1.6-8.9); Platelet Count 232 K/mcL (140-400); Red Blood Count 2.47 M/mcL (3.82-4.97); Red Cell Distribution Width 16.2 % (11.5-14.5); Segmented Neutrophils % 90.7 %; White Blood Count 4.3 K/mcL (4.3-11.1)
[2021-08-25 06:56] LABS: Potassium 4.1 mEq/L (3.5-5.1)
[2021-08-25] MEDS: FLUoxetine 20 MG CAPSULE PO SCH (08:13)
[2021-08-25] MEDS: DilTIAZem CD (24hr) 120 MG CAP.ER.24H PO SCH (08:14)
[2021-08-25] MEDS: Sennosides/Docusate Sodium TABLET PO SCH ×2 (08:14→21:02)
[2021-08-25] MEDS: Furosemide 20 MG TABLET PO SCH (08:14)
[2021-08-25] MEDS: carvediloL 25 MG TABLET PO SCH ×2 (08:14→17:29)
[2021-08-25] MEDS: Aspirin Enteric Coated 81 MG Tablet PO SCH (08:14)
[2021-08-25] MEDS: Nystatin POWDER 30 GM BOTTLE TP SCH ×2 (08:18→21:02)
[2021-08-25 08:19] LABS: Anisocytosis 1+ (Not Present); Hypochromasia Present (Not Present); Platelet Estimate Normal (Normal)
[2021-08-25] MEDS: Budesonide/Formoterol 160/4.5 1 PUFF INH IH SCH ×2 (09:27→21:12)
[2021-08-25] MEDS: Tiotropium 10 INH DOSE IH SCH (10:02)
[2021-08-25] MEDS: Folic Acid 1 MG TABLET PO SCH (21:02)
[2021-08-26] MEDS: MethylPREDNISolone 40 MG/ML VIAL IVP SCH ×2 (05:34→17:53)
[2021-08-26] MEDS: hydrALAZINE 10 MG TABLET PO SCH ×4 (05:34→20:09)
[2021-08-26] MEDS: *HR* Heparin 5,000 UNIT/ML VIAL SQ SCH ×2 (05:35→17:53)
[2021-08-26] MEDS: Furosemide 20 MG TABLET PO SCH (09:16)
[2021-08-26] MEDS: DilTIAZem CD (24hr) 120 MG CAP.ER.24H PO SCH (09:16)
[2021-08-26] MEDS: FLUoxetine 20 MG CAPSULE PO SCH (09:16)
[2021-08-26] MEDS: Sennosides/Docusate Sodium TABLET PO SCH ×2 (09:16→20:09)
[2021-08-26] MEDS: Nystatin POWDER 30 GM BOTTLE TP SCH ×2 (09:16→21:30)
[2021-08-26] MEDS: carvediloL 25 MG TABLET PO SCH ×2 (09:16→16:48)
[2021-08-26] MEDS: Aspirin Enteric Coated 81 MG Tablet PO SCH (09:16)
[2021-08-26] MEDS: Budesonide/Formoterol 160/4.5 1 PUFF INH IH SCH ×2 (10:11→21:45)
[2021-08-26] MEDS: Ipratropium/Albuterol Neb 3 ML IH PRN ×2 (10:11→19:40)
[2021-08-26] MEDS: Tiotropium 10 INH DOSE IH SCH (10:12)
[2021-08-26] MEDS: polyethylene glycoL 3350 17 GM POWD.PACK PO SCH (16:48)
[2021-08-26] MEDS: *HR* HYDROcodone/Acet 10/325 mg TABLET PO PRN (20:09)
[2021-08-26] MEDS: Folic Acid 1 MG TABLET PO SCH (20:09)
[2021-08-27] MEDS: hydrALAZINE 10 MG TABLET PO SCH ×6 (00:28→23:29)
[2021-08-27] MEDS: *HR* Heparin 5,000 UNIT/ML VIAL SQ SCH ×2 (05:44→17:04)
[2021-08-27] MEDS: MethylPREDNISolone 40 MG/ML VIAL IVP SCH ×2 (05:44→17:03)
[2021-08-27] MEDS: Ipratropium/Albuterol Neb 3 ML IH PRN ×3 (07:41→22:13)
[2021-08-27] MEDS: Budesonide/Formoterol 160/4.5 1 PUFF INH IH SCH ×2 (07:41→22:13)
[2021-08-27] MEDS: Tiotropium 10 INH DOSE IH SCH (07:42)
[2021-08-27] MEDS: Sennosides/Docusate Sodium TABLET PO SCH ×2 (09:00→21:44)
[2021-08-27] MEDS: carvediloL 25 MG TABLET PO SCH ×2 (09:00→17:02)
[2021-08-27] MEDS: Aspirin Enteric Coated 81 MG Tablet PO SCH (09:00)
[2021-08-27] MEDS: FLUoxetine 20 MG CAPSULE PO SCH (09:00)
[2021-08-27] MEDS: Furosemide 20 MG TABLET PO SCH (09:00)
[2021-08-27] MEDS: polyethylene glycoL 3350 17 GM POWD.PACK PO SCH (09:00)
[2021-08-27] MEDS: DilTIAZem CD (24hr) 120 MG CAP.ER.24H PO SCH (09:01)
[2021-08-27] MEDS: Nystatin POWDER 30 GM BOTTLE TP SCH ×2 (09:09→21:44)
[2021-08-27] MEDS: *HR* HYDROcodone/Acet 10/325 mg TABLET PO PRN ×2 (09:09→21:45)
[2021-08-27] MEDS ORDERED: BUPRENORPHINE TRANSDERMAL TP SCH (10:00)
[2021-08-27] MEDS: Folic Acid 1 MG TABLET PO SCH (21:45)
[2021-08-28] MEDS: *HR* Heparin 5,000 UNIT/ML VIAL SQ SCH ×2 (06:05→18:19)
[2021-08-28] MEDS: hydrALAZINE 10 MG TABLET PO SCH ×3 (06:08→18:19)
[2021-08-28] MEDS: MethylPREDNISolone 40 MG/ML VIAL IVP SCH ×2 (06:14→18:19)
[2021-08-28] MEDS: Sennosides/Docusate Sodium TABLET PO SCH ×2 (08:40→21:55)
[2021-08-28] MEDS: polyethylene glycoL 3350 17 GM POWD.PACK PO SCH (08:40)
[2021-08-28] MEDS: Aspirin Enteric Coated 81 MG Tablet PO SCH (08:40)
[2021-08-28] MEDS: carvediloL 25 MG TABLET PO SCH ×2 (08:40→17:01)
[2021-08-28] MEDS: DilTIAZem CD (24hr) 120 MG CAP.ER.24H PO SCH (08:41)
[2021-08-28] MEDS: Nystatin POWDER 30 GM BOTTLE TP SCH ×2 (08:41→21:00)
[2021-08-28] MEDS: FLUoxetine 20 MG CAPSULE PO SCH (08:41)
[2021-08-28] MEDS: Furosemide 20 MG TABLET PO SCH (08:41)
[2021-08-28] MEDS: Ipratropium/Albuterol Neb 3 ML IH PRN ×3 (09:28→21:43)
[2021-08-28] MEDS: Budesonide/Formoterol 160/4.5 1 PUFF INH IH SCH ×2 (09:28→21:43)
[2021-08-28] MEDS: Tiotropium 10 INH DOSE IH SCH (09:37)
[2021-08-28] MEDS: *HR* HYDROcodone/Acet 10/325 mg TABLET PO PRN (21:56)
[2021-08-28] MEDS: Folic Acid 1 MG TABLET PO SCH (21:56)
[2021-08-29] MEDS: hydrALAZINE 10 MG TABLET PO SCH ×4 (00:08→16:47)
[2021-08-29] MEDS: *HR* Heparin 5,000 UNIT/ML VIAL SQ SCH ×2 (05:50→16:47)
[2021-08-29] MEDS: Ipratropium/Albuterol Neb 3 ML IH PRN ×3 (06:50→23:01)
[2021-08-29] MEDS: MethylPREDNISolone 40 MG/ML VIAL IVP SCH (06:54)
[2021-08-29] MEDS: polyethylene glycoL 3350 17 GM POWD.PACK PO SCH (07:50)
[2021-08-29] MEDS: Sennosides/Docusate Sodium TABLET PO SCH ×2 (07:52→22:47)
[2021-08-29] MEDS: carvediloL 25 MG TABLET PO SCH ×2 (07:52→16:47)
[2021-08-29] MEDS: FLUoxetine 20 MG CAPSULE PO SCH (07:52)
[2021-08-29] MEDS: DilTIAZem CD (24hr) 120 MG CAP.ER.24H PO SCH (07:52)
[2021-08-29] MEDS: Aspirin Enteric Coated 81 MG Tablet PO SCH (07:52)
[2021-08-29] MEDS: Nystatin POWDER 30 GM BOTTLE TP SCH ×2 (07:53→22:47)
[2021-08-29] MEDS: Furosemide 20 MG TABLET PO SCH (07:53)
[2021-08-29] MEDS: Budesonide/Formoterol 160/4.5 1 PUFF INH IH SCH ×2 (08:02→23:01)
[2021-08-29] MEDS: *HR* HYDROcodone/Acet 10/325 mg TABLET PO PRN (11:28)
[2021-08-29] MEDS: Folic Acid 1 MG TABLET PO SCH (22:47)
[2021-08-30] MEDS: hydrALAZINE 10 MG TABLET PO SCH ×5 (03:05→23:57)
[2021-08-30] MEDS: Ipratropium/Albuterol Neb 3 ML IH PRN ×4 (05:25→22:31)
[2021-08-30] MEDS: *HR* Heparin 5,000 UNIT/ML VIAL SQ SCH ×2 (06:34→18:58)
[2021-08-30] MEDS: Budesonide/Formoterol 160/4.5 1 PUFF INH IH SCH ×2 (09:34→22:31)
[2021-08-30] MEDS: FLUoxetine 20 MG CAPSULE PO SCH (10:17)
[2021-08-30] MEDS: predniSONE 20 MG TABLET PO SCH (10:18)
[2021-08-30] MEDS: Furosemide 20 MG TABLET PO SCH (10:18)
[2021-08-30] MEDS: carvediloL 25 MG TABLET PO SCH ×2 (10:19→16:11)
[2021-08-30] MEDS: Aspirin Enteric Coated 81 MG Tablet PO SCH (10:19)
[2021-08-30] MEDS: DilTIAZem CD (24hr) 120 MG CAP.ER.24H PO SCH (10:19)
[2021-08-30] MEDS: Sennosides/Docusate Sodium TABLET PO SCH ×2 (10:19→20:27)
[2021-08-30] MEDS: polyethylene glycoL 3350 17 GM POWD.PACK PO SCH (10:20)
[2021-08-30] MEDS: Nystatin POWDER 30 GM BOTTLE TP SCH ×2 (10:20→20:28)
[2021-08-30] MEDS ORDERED: Furosemide 20 MG/2 ML VIAL IVP ONE (15:21)
[2021-08-30] MEDS: *HR* HYDROcodone/Acet 10/325 mg TABLET PO PRN (16:11)
[2021-08-30] MEDS: Folic Acid 1 MG TABLET PO SCH (20:27)
[2021-08-31] MEDS: Ipratropium/Albuterol Neb 3 ML IH PRN ×4 (04:26→22:27)
[2021-08-31] MEDS: *HR* Heparin 5,000 UNIT/ML VIAL SQ SCH ×2 (05:29→18:29)
[2021-08-31] MEDS: hydrALAZINE 10 MG TABLET PO SCH ×3 (05:56→18:29)
[2021-08-31 08:21] LABS: Calcium 9.1 mg/dL (8.6-10.3); Magnesium 2.1 mg/dL (1.6-2.6); Potassium 4.6 mEq/L (3.5-5.1)
[2021-08-31 08:29] LABS: Eosinophils # 0.1 K/mcL (0.0-0.6); Eosinophils % 1.3 %; Hematocrit 26.3 % (35.3-44.9); Hemoglobin 7.8 g/dL (11.5-15.4); Immature Granulocytes % 2.4 % (0-4); Lymphocytes # 0.3 K/mcL (0.6-4.6); Lymphocytes % 6.7 %; Mean Corpuscular HGB Conc 29.7 g/dL (31.6-35.5); Mean Corpuscular Hemoglobin 31.2 pg (28.0-33.3); Mean Corpuscular Volume 105.2 fL (83.0-100.0); Mean Platelet Volume 10.1 fL (9.4-12.4); Monocytes # 0.5 K/mcL (0.0-1.3); Monocytes % 9.8 %; Neutrophils # 3.7 K/mcL (1.6-8.9); Nucleated Red Blood Cells 0.7 /100 WBC (0); Platelet Count 187 K/mcL (140-400); Red Cell Distribution Width 15.9 % (11.5-14.5); Segmented Neutrophils % 79.8 %; White Blood Count 4.6 K/mcL (4.3-11.1)
[2021-08-31] MEDS: Aspirin Enteric Coated 81 MG Tablet PO SCH (08:33)
[2021-08-31] MEDS: DilTIAZem CD (24hr) 120 MG CAP.ER.24H PO SCH (08:33)
[2021-08-31] MEDS: polyethylene glycoL 3350 17 GM POWD.PACK PO SCH (08:34)
[2021-08-31] MEDS: Sennosides/Docusate Sodium TABLET PO SCH ×2 (08:34→21:32)
[2021-08-31] MEDS: carvediloL 25 MG TABLET PO SCH ×2 (08:34→16:49)
[2021-08-31] MEDS: predniSONE 20 MG TABLET PO SCH (08:43)
[2021-08-31] MEDS: Furosemide 20 MG TABLET PO SCH (08:43)
[2021-08-31] MEDS: FLUoxetine 20 MG CAPSULE PO SCH (08:43)
[2021-08-31] MEDS: *HR* HYDROcodone/Acet 10/325 mg TABLET PO PRN (08:44)
[2021-08-31] MEDS: Nystatin POWDER 30 GM BOTTLE TP SCH ×2 (08:44→21:33)
[2021-08-31] MEDS ORDERED: *HR* Methotrexate 2.5 MG TABLET PO SCH (09:00)
[2021-08-31] MEDS: Budesonide/Formoterol 160/4.5 1 PUFF INH IH SCH ×2 (10:38→22:27)
[2021-08-31] MEDS: Folic Acid 1 MG TABLET PO SCH (21:32)
[2021-09-01] MEDS: *HR* HYDROcodone/Acet 10/325 mg TABLET PO PRN ×2 (02:33→14:34)
[2021-09-01] MEDS: hydrALAZINE 10 MG TABLET PO SCH ×4 (02:37→17:40)
[2021-09-01] MEDS: Ipratropium/Albuterol Neb 3 ML IH PRN ×2 (04:27→09:33)
[2021-09-01] MEDS: *HR* Heparin 5,000 UNIT/ML VIAL SQ SCH ×2 (05:36→17:40)
[2021-09-01 06:39] VITALS: TEMP 98.4; O2SAT 91
[2021-09-01] MEDS ORDERED: MethylPREDNISolone 40 MG/ML VIAL IVP ONE (08:46)
[2021-09-01] MEDS: Budesonide/Formoterol 160/4.5 1 PUFF INH IH SCH (09:33)
[2021-09-01] MEDS: FLUoxetine 20 MG CAPSULE PO SCH (09:47)
[2021-09-01] MEDS: Sennosides/Docusate Sodium TABLET PO SCH (09:47)
[2021-09-01] MEDS: DilTIAZem CD (24hr) 120 MG CAP.ER.24H PO SCH (09:47)
[2021-09-01] MEDS: predniSONE 20 MG TABLET PO SCH (09:47)
[2021-09-01] MEDS: Aspirin Enteric Coated 81 MG Tablet PO SCH (09:47)
[2021-09-01] MEDS: Furosemide 20 MG TABLET PO SCH (09:47)
[2021-09-01] MEDS: carvediloL 25 MG TABLET PO SCH ×2 (09:47→17:45)
[2021-09-01 09:49] VITALS: RESP 22
[2021-09-01] MEDS: polyethylene glycoL 3350 17 GM POWD.PACK PO SCH (09:49)
[2021-09-01] MEDS: Nystatin POWDER 30 GM BOTTLE TP SCH (09:49)
[2021-09-01 14:36] VITALS: BP 126/63; PULSE 83
== END 2021-09-01 18:15 | disposition short-term general hospital (02) | DRG 292 ==
LOC: INPPIK 17:41
PROVIDERS: ADMIT Internal Medicine; ATTEND Internal Medicine